=== PATIENT | male | born 1955 | race Caucasian/White ===

== ENCOUNTER → 2016-08-21 | Outpatient (CLI) | payer BC ==
[2016-08-21 16:30] LABS: CH 30.5; CHCM 33.3; HCT 52.9 % (39.0-53.0); HDW 2.71; HGB 17.9 gm/dL (13.0-17.5); MCH 31.1 pg (25.0-35.0); MCHC 33.8 g/dL (31.0-37.0); RBC 5.75 m/uL (4.30-5.90); RDW 13.2 % (11.5-15.5); WBC 8.3 k/uL (3.8-10.6)
[2016-08-21 16:40] LABS: Anion Gap 13 mmol/L; Blood Urea Nitrogen 18 mg/dL (9-20); Calcium 9.2 mg/dL (8.4-10.2); Carbon Dioxide 29 mmol/L (22-30); Chloride 102 mmol/L (98-107); Glucose 73 mg/dL (74-99); Non-African American GFR(MDRD) >60 (>60 ml/min/1.73 sqM); Potassium 3.8 mmol/L (3.5-5.1); Sodium 144 mmol/L (137-145)
== END | disposition home or self-care (01) ==
LOC: LABWHC1 16:05
PROVIDERS: ATTEND Internal Medicine Clinical Cardiac Electrophysiology
DX: I47.1 Supraventricular tachycardia (principal); I42.9 Cardiomyopathy, unspecified; I48.1 Persistent atrial fibrillation
CPT/HCPCS: 36415; 80048; 85027

== ENCOUNTER 2016-09-02 06:38 | Day surgery (SDC) | payer BC ==
[2016-09-02] MEDS: SODIUM CHLORIDE 0.9% 1,000 ML IV SCH (07:18)
[2016-09-02] MEDS ORDERED: ePHEDrine 50 MG/ML 1 ML AMP ONE (07:49)
[2016-09-02] MEDS ORDERED: NEOSTIGMINE 1 MG/ML 10 ML VIAL ONE (07:49)
[2016-09-02] MEDS ORDERED: VECURONIUM 10 MG VIAL IV ONE (07:49)
[2016-09-02] MEDS ORDERED: LIDOCAINE 1% INJ 10MG/ML (20 ML MDV) ONE (07:49)
[2016-09-02] MEDS ORDERED: HEPARIN SODIUM,PORCINE 10,000 UNIT/ML 1 ML VIAL ONE (07:49)
[2016-09-02] MEDS ORDERED: MIDAZOLAM 2 MG/2 ML VIAL ONE (07:49)
[2016-09-02] MEDS ORDERED: FUROSEMIDE 10 MG/ML 2 ML VIAL ONE (07:49)
[2016-09-02] MEDS ORDERED: SUCCINYLCHOLINE CHLORIDE 100 MG/5 ML SYR IV ONE (07:49)
[2016-09-02] MEDS ORDERED: GLYCOPYRROLATE 0.2 MG/ML 2 ML VIAL ONE (07:49)
[2016-09-02] MEDS ORDERED: PROPOFOL 10 MG/ML 20 ML VIAL IV ONE (07:49)
[2016-09-02] MEDS ORDERED: ISOPROTERENOL 250 MCG/1.25 ML SYR IV ONE (07:49)
[2016-09-02] MEDS ORDERED: PHENYLEPHRINE-0.9% NACL SYG 1 MG/10 ML SYRINGE ONE (07:49)
[2016-09-02] MEDS ORDERED: fentaNYL (PF) 50 MCG/ML 2 ML AMP ONE (07:49)
[2016-09-02] MEDS ORDERED: LIDOCAINE 2% INJ 20 MG/ML SQ ONE (08:42)
[2016-09-02] MEDS ORDERED: HEPARIN SODIUM,PORCINE/D5W PMX 25,000 UNIT in DEXTROSE/WATER 1 500ML.BAG IV ONE (09:22)
[2016-09-02] MEDS ORDERED: HEPARIN SODIUM (1,000 UNIT/ML) 1,000 UNIT in SODIUM CHLORIDE 0.9% 1,000 ML IRRIGATION ONE (09:45)
[2016-09-02] MEDS ORDERED: LACTATED RINGERS 1,000 ML IV ONE (12:30)
[2016-09-02] MEDS ORDERED: PROTAMINE SULFATE 10 MG/ML 5 ML VIAL IV ONE ×2 (13:47→13:50)
[2016-09-02] MEDS ORDERED: FUROSEMIDE 10 MG/ML 4 ML VIAL ONE (13:52)
[2016-09-02] MEDS ORDERED: FUROSEMIDE 10 MG/ML 4 ML VIAL IV ONE (13:55)
[2016-09-02] MEDS ORDERED: ACETAMINOPHEN IV (For NPO) 1,000 MG in EMPTY BAG 1 BAG IVPB ONE (15:12)
[2016-09-02] MEDS ORDERED: ACETAMINOPHEN TAB 325 MG TAB PO PRN (15:12)
[2016-09-02] MEDS ORDERED: HYDROcodone/APAP 5-325MG 1 EACH TAB PO PRN (15:12)
--- NOTE | 2016-09-02 15:17 | P.PCN ---
Preoperative Diagnosis: Patient admitted for post A. fib ablation atrial tachycardia atrial cycle length 400 ms, upright P waves in V1 Ablations performed PVI antral level right side anterior and roof PVI natasha left knee veins, anteriorly Focal ablation of a focal atrial tachycardia mid roof of the left atrium, successful termination with second RF lesion Ablation of right atrial isthmus for flutter
--- NOTE | 2016-09-02 16:40 | CE ---
DATE OF SERVICE: Mr. Yadav is a 61-year-old male patient comes to his atrial tachycardia fibrillation. He is brought in for A. tach/fibrillation. Patient was brought to the EP lab in a fasting state. Written informed consent was obtained prior to the procedure. The procedure was performed under general anesthesia. Right and left groins were prepped and draped as per protocol. 5 [place] arterial sheath was placed in the right femoral vein. Via this hemodynamic monitoring was performed as well as sampling. ACT was maintained above 300 and this was reversed at the end of the procedure. The venous sheaths were placed in the right and left femoral veins, and via these diagnostic, mapping and then ablation catheters were placed. The patient was in atrial tachycardia at the start of the study with a cycle length of 400 ms, upright QRSs in lead V1, upright in lead I and slightly upright in the inferior leads. Intracardiac echocardiography was performed and there were no intracardiac masses noted. Interatrial septum was identified. Three-D anatomic mapping of the left atrium and later the caval tricuspid isthmus was performed. Transseptal catheterization was performed. The left and right transseptal catheterization on intracardiac echo guidance was performed. He had a thick interatrial septum and it was difficult to cross. A transsept wire, was used but this did not help with crossing through the ( ). RF energy was applied to the Brockenbrough needle, 10 landry and we successfully crossed over without any acute complications. The sheath was then placed in the left atrium and a ( ) catheter was first placed in the left atrium. Coronary sinus catheter was placed while the other venous sheaths and later high right atrial catheter, His bundle catheter and RV catheters were placed. 3-D anatomic mapping of the left atrium was performed using a Pentaray catheter and a focal tachycardia was detected in the roof in the mid roof of the left atrium. This catheter was removed and mapping and ablation catheter was placed and ( ) RF lesion at the earliest site, resulted in termination of the tachycardia. The ( ) set was then consolidated with RF lesions around the early site, good contact, and good power was achieved. Voltage mapping of the left atrium was performed in sinus rhythm. The pulmonary veins were interrogated and the previous linear RF lines were interrogated. Mild left and right pulmonary veins were definitely isolated. The following was noted: 1. Along the roof and anterior aspect of the right-sided veins, isolated signals were noted at 2 to 3 sites. The vein was completely isolated. But these isolated signals, would come occasionally. Detailed scar mapping of the roof and the anterior antrum of the right-sided veins was performed and an RF ablation was performed from the roof down to below the natasha. At a very antral/atrial level. This resulted in complete quiescence of the pulmonary veins which are already isolated. This resulted in complete quiescence of the pulmonary veins of the right side. 2. RF ablations were delivered and the anterior natasha of the left-sided veins and this area was rendered ( ) silent. After completion of the pulmonary vein isolation, scar mapping was performed along the roof and the initial RF lesion set for focal tachycardia was then connected on the right-sided pulmonary veins and a complete integrity of the line was ensured. Anterior mitral line was drawn just medial to the left atrial appendage was also interrogated and this was already complete. Following that, the catheter was removed from the left atrium and heparin was discontinued. After anatomic mapping of the right atrial isthmus was performed, the patient already had a prior atrial flutter ablation previously. Scar mapping was performed and there were areas of electrical recovery were noted since he had a very long right atrial isthmus. RF energy was applied at these sites and a complete and right atrial isthmus line was completed. The isthmus conduction time was greater than 154 ms. It was greater than 155 ms and pacing from the coronary sinus. A complete scar map was made to confirm this once again at a very low voltage threshold of 0.02 mV. Please note that the left atrial scar voltage map was made at the lower voltage threshold of 0.01 mV and the right atrial isthmus at the lower voltage threshold of 0.02 mV. Following that, Isuprel was started and a full EP study was performed. Sinus node recovery times at 600 ms were 1415 ms. The corresponding corrected sinus node recovery times were within normal limits. AV node Wenckebach block was 370 ms from the coronary sinus, via Wenckebach block 340 ms, AV node Wenckebach block improved to 30 ms on Isuprel, on Isuprel a slow pathway was noted at 270 ms but no AV node re-entry was used at the baseline AH interval was 133 ms, baseline HV interval was 45 ms. High-dose Isuprel was continued and no other arrhythmias were induced. At the end of the procedure, all catheters were removed. Protamine was administered and sheaths were removed. The patient was transferred to telemetry. RESULT: Diagnostic EP study revealin. Focal atrial tachycardia in the mid roof of the left atrium which is clinical tachycardia and this was successfully ablated. 2. Isolated signals within the anterior aspect of the right pulmonary veins. These are dissociated signals complete isolation of the right-sided vein was performed anteriorly and along the roof. Isolated signal was also noted in the natasha of the left-sided veins and RF ablation along the ridge at the level of the natasha resulted in successful isolation of these veins. 3. Completion of ( ) tricuspid isthmus line was performed based upon the scar mapping. Patient tolerated the procedure well without any acute complications. PROCEDURES PERFORMED: 1. Hemodynamic monitoring and sampling via the right femoral arterial sheath. 2. Comprehensive diagnostic EP study with attempted arrhythmia induction. 3. Coronary sinus pacing and recording. 4. Left to right transseptal catheterization. 5. Three-D mapping of the left atrium. Three-D mapping of the right atrium. Two left atrial 3D maps were made and isolation of the pulmonary veins on the right and left side and focal atrial tachycardia ablation in the left atrium at the roof. 6. Linear ablation along tricuspid isthmus to complete the flutter-line. 7. Program stimulation following Isuprel. The patient tolerated the procedure well without any acute complications.
[2016-09-02 16:47] VITALS: BMI 35.4
--- NOTE | 2016-09-02 16:47 | DS ---
DATE OF ADMISSION: 09/02/2016 DATE OF DISCHARGE: Moise Yadav is a 61-year-old male patient underwent A. tach ablation for as well as PVI and CT ablation. He will be monitored overnight on telemetry. All of his medications will be continued and he will be discharged home tomorrow if he is stable and will follow up with Dr. Spence in 1 to 2 weeks. He will also follow with Dr. Byrd as before. His LV function on intracardiac echo shows normal function. He will continue Tikosyn.
--- NOTE | 2016-09-02 16:49 | CE ---
DATE OF SERVICE: ADDENDUM: LEFT AND RIGHT TRANSSEPTAL CATHETERIZATION: Please include in the original dictation not as an addendum: The RA pressure was 17 x 14 mmHg and LA pressure was 35 x 17 mmHg.
--- NOTE | 2016-09-02 16:51 | LTR ---
September 02, 2016 RE: Moise Yadav Dear Dr. Byrd: I had the pleasure of seeing Mr. Moise Yadav in electrophysiology follow up. ( ) Mr. Yadav had a recurrence of slow atrial tachycardia and he underwent successful focal atrial tachycardia ablation. The other RF lines were interrogated with voltage mapping and were consolidated. RF ablation at the earliest site and the roof of the left atrium resulted in termination of the tachycardia. However, his left and right atria are very dilated. In addition, his blood pressure was elevated when he came in, despite the fact that he continues to take his medications. He has not been very compliant with salt restrictions either. Both his left and right atrial pressures are elevated and I will urge him to reduce salt intake and he will require full maximization of antihypertensive therapy if needed. His pulmonary veins are now completely isolated. His roof line is complete. The anterior mitral line was also interrogation and is completed. The focal atrial tachycardia ablation was successful with a second RF lesion. He will continue anticoagulation. He will also continue Tikosyn. Thank you for entrusting me with the care of your patient. Warm regards, Sincerely, FELISHA LAKHANI MD
[2016-09-02] MEDS ORDERED: METOPROLOL SUCCINATE (ER) 50 MG TAB.ER.24H PO SCH (17:30)
[2016-09-02] MEDS ORDERED: RIVAROXABAN 10 MG TAB PO SCH (21:00)
[2016-09-02] MEDS: DOFETILIDE 125 MCG CAP PO SCH (21:52)
[2016-09-02] MEDS: LISINOPRIL 20 MG TAB PO SCH (21:52)
[2016-09-03] MEDS: SODIUM CHLORIDE 0.9% 1,000 ML IV SCH (06:52)
[2016-09-03 08:25] VITALS: RESP 16
[2016-09-03] MEDS: DOFETILIDE 125 MCG CAP PO SCH (08:25)
[2016-09-03] MEDS: LISINOPRIL 20 MG TAB PO SCH (08:26)
[2016-09-03 08:35] VITALS: PULSE 64
[2016-09-03] MEDS ORDERED: SPIRONOLACTONE 25 MG TAB PO SCH (09:00)
[2016-09-03 11:58] VITALS: BP 130/87; TEMP 97
[2016-09-03] MEDS ORDERED: MAGNESIUM OXIDE 250 MG TAB PO SCH (12:00)
== END 2016-09-03 12:51 | disposition home or self-care (01) ==
LOC: CATHEP 06:38 → 6SEL 13:55 → CATHEP 09-03 12:51
PROVIDERS: ATTEND Internal Medicine Clinical Cardiac Electrophysiology
DX: I47.1 Supraventricular tachycardia (principal); I48.1 Persistent atrial fibrillation; I42.9 Cardiomyopathy, unspecified; I10 Essential (primary) hypertension; G47.33 Obstructive sleep apnea (adult) (pediatric); Z79.01 Long term (current) use of anticoagulants; Z79.899 Other long term (current) drug therapy; Z88.0 Allergy status to penicillin
CPT/HCPCS: 85347; 93623; 93662; 93613; 93656; 93657; C1894 ×3; C1769 ×5; C1730; C1731; C1893; C1759; C1732; J2001 ×2; J2250; J2720; J1644 ×3; J1940 ×2; J2710; J3010; J2370; J0330; J2704

== ENCOUNTER → 2016-12-11 | Outpatient (CLI) | payer BC ==
[2016-12-11 10:30] LABS: ALT 32 U/L (21-72); AST 31 U/L (17-59); Alkaline Phosphatase 65 U/L (38-126); Anion Gap 8 mmol/L; Blood Urea Nitrogen 16 mg/dL (9-20); Calcium 9.2 mg/dL (8.4-10.2); Carbon Dioxide 29 mmol/L (22-30); Chloride 105 mmol/L (98-107); Glucose 85 mg/dL (74-99); Magnesium 1.9 mg/dL (1.6-2.3); Non-African American GFR(MDRD) >60 (>60 ml/min/1.73 sqM); Potassium 4.2 mmol/L (3.5-5.1); Sodium 142 mmol/L (137-145); Total Protein 7.4 g/dL (6.3-8.2)
== END | disposition home or self-care (01) ==
LOC: LABWHC1 09:48
PROVIDERS: ATTEND Internal Medicine Interventional Cardiology
DX: I48.0 Paroxysmal atrial fibrillation (principal)
CPT/HCPCS: 36415; 80053; 83735

== ENCOUNTER → 2016-12-11 | Outpatient (CLI) | payer BC ==
--- NOTE | 2016-12-11 22:56 | PN ---
DATE OF SERVICE: 12/11/2016 A 61-year-old gentleman who has been followed in the sleep center for treatment of obstructive sleep apnea-hypopnea syndrome. Patient continued to use his BiPAP equipment practically every night. Reading from last 30 days of his machine showed usage for more than 4 hours for 29 out of 30 days, which is 97%. Pressure is 17/13. Sometimes patient takes his mask off during the night. He does not feel comfortable with that. Apnea-hypopnea index reading is 9.7. Leak is quite significant. It is ( ). According to patient, he is trying to put his mask on and tighten it and then he does not feel comfortable because is too tight. Castella Sleepiness Scale today is 3. MEDICATIONS: 1. Xarelto. 2. Lisinopril. 3. Spironolactone. 4. Metoprolol. 5. Lasix. 6. Fluticasone. PHYSICAL EXAMINATION: GENERAL: A pleasant patient without any distress. VITAL SIGNS: BP 107/77, HR 64, RR 16. Height 73-1/2 inches. Weight 283. BMI 36.9. Patient increased his weight since the time when he had titration about 10 pounds up. Temperature 98.1. Oxygen saturation at room air 98%. HEENT: PERRLA, EOMI, Evaluation of the oropharynx showed tongue protrudes midline, extremely low position of soft palate. NECK: Supple. No JVD, Thyroid is not palpable. LUNGS: Clear to percussion and to auscultation. Good air exchange. No wheezing or rhonchi. HEART: S1, S2 regular. No murmurs, gallops, or rubs. ABDOMEN: Obese, soft and nontender. Bowel sounds are present. No organomegaly appreciated. EXTREMITIES: Practically no edema. PEER SPECIALIST: Awake, alert, and oriented x3. Cranial nerves 2 to 7 intact. There is no fasciculation or atrophy noted. No focal deficits observed. IMPRESSION: 1. Obstructive sleep apnea/hypopnea syndrome. Patient demonstrated good compliance with treatment, benefiting from treatment. Apnea-hypopnea index slightly increased. Significant leak from the mask. 2. Obesity, body mass index 36.9. Patient increased his weight around 10 pounds since previous titration. 3. History of atrial fibrillation. 4. Hypertension. 5. History of cardiomyopathy. 6. History of swelling of legs in the past, practically no swelling at the present time. PLAN: 1. Patient will continue to use his BiPAP equipment every night for the whole night. 2. Losing weight. 3. Sleep hygiene with regular time in bed for at least 8 hours. 4. Will try to work regarding to change his mask to a more comfortable unit. 5. No driving if feeling any sleepiness. 6. Prescription for all necessary BiPAP supplies, including mask, tube, filters. Thank you very much for allowing me to participate in the management of your patient. Sincerely, Tim Valentin MD, PhD, FAASM Diplomat of [place] [employer] Sleep [employer], Sleep Medicine Board by [place] [employer] [place] [employer] Manager of [facility] [place]
== END | disposition home or self-care (01) ==
LOC: SLEEP 16:31
PROVIDERS: ATTEND Internal Medicine
DX: G47.33 Obstructive sleep apnea (adult) (pediatric) (principal); E66.9 Obesity, unspecified; Z68.36 Body mass index [BMI] 36.0-36.9, adult; I48.91 Unspecified atrial fibrillation; I10 Essential (primary) hypertension; I42.9 Cardiomyopathy, unspecified; Z79.01 Long term (current) use of anticoagulants; Z79.899 Other long term (current) drug therapy

== ENCOUNTER → 2017-06-26 | Outpatient (CLI) | payer OTHER ==
[2017-06-26 11:10] LABS: ALT 38 U/L (21-72); AST 24 U/L (17-59); Alkaline Phosphatase 58 U/L (38-126); Anion Gap 7 mmol/L; Blood Urea Nitrogen 20 mg/dL (9-20); Calcium 9.1 mg/dL (8.4-10.2); Carbon Dioxide 27 mmol/L (22-30); Chloride 106 mmol/L (98-107); Glucose 73 mg/dL (74-99); Magnesium 1.9 mg/dL (1.6-2.3); Non-African American GFR(MDRD) >60 (>60 ml/min/1.73 sqM); Potassium 4.5 mmol/L (3.5-5.1); Sodium 140 mmol/L (137-145); Total Bilirubin 0.8 mg/dL (0.2-1.3); Total Protein 6.7 g/dL (6.3-8.2)
== END | disposition home or self-care (01) ==
LOC: LABWHC1 10:13
PROVIDERS: ATTEND Internal Medicine Interventional Cardiology
DX: I48.0 Paroxysmal atrial fibrillation (principal)
CPT/HCPCS: 36415; 80053; 83735

== ENCOUNTER → 2018-03-04 | Outpatient (CLI) | payer OTHER ==
[2018-03-04 15:13] LABS: Calcium 9.1 mg/dL (8.4-10.2); Potassium 4.5 mmol/L (3.5-5.1); Total Bilirubin 0.6 mg/dL (0.2-1.3); Total Protein 6.5 g/dL (6.3-8.2)
== END | disposition home or self-care (01) ==
LOC: LABWHC1 14:20
PROVIDERS: ATTEND Internal Medicine Interventional Cardiology
DX: I48.0 Paroxysmal atrial fibrillation (principal)
CPT/HCPCS: 36415; 80053; 83735

== ENCOUNTER → 2019-03-17 | Outpatient (CLI) | payer BC ==
[2019-03-17 16:09] LABS: African American GFR (CKD) 66.4 (60.0-200.0); Albumin 4.2 g/dL (3.80-4.90); Anion Gap 10.4 mmol/L (4.00-12.00); Carbon Dioxide 26.6 mmol/L (21.6-31.8); Globulin 2.1 g/dL (1.6-3.3); Magnesium 1.8 mg/dL (1.5-2.4); Non-African American GFR(CKD) 57.3 (60.0-200.0); Potassium 4.1 mmol/L (3.5-5.5); Total Bilirubin 0.9 mg/dL (0.3-1.2); Total Protein 6.3 g/dL (6.2-8.2)
== END | disposition home or self-care (01) ==
LOC: LABWHC1 10:16
PROVIDERS: ATTEND Internal Medicine Interventional Cardiology
DX: I48.1 Persistent atrial fibrillation (principal)
CPT/HCPCS: 36415; 80053; 83735

== ENCOUNTER → 2019-05-31 | Outpatient (CLI) | payer BC | END | disposition home or self-care (01) | LOC: LABPAT 16:05 | PROVIDERS: ATTEND Orthopaedic Surgery | DX: Z01.812 Encounter for preprocedural laboratory examination (principal); M16.11 Unilateral primary osteoarthritis, right hip | CPT/HCPCS: 87070 ==

== ENCOUNTER 2019-06-06 06:37 | Inpatient (IN) | payer BC, MEDICARE ==
[2019-05-27 11:49] VITALS: BMI 34.9
--- NOTE | 2019-06-05 17:42 | HP ---
HISTORY AND PHYSICAL REASON FOR ADMISSION: Surgery scheduled for 06/06/2019 HISTORY OF PRESENT ILLNESS: Moise Yadav is a 63-year-old patient seen with symptomatic right hip osteoarthritis. After having treatment options discussed with him, he elected to proceed with direct anterior right total hip arthroplasty. Consent regarding the procedure was obtained. Medical clearance was provided Dr. Aldo Byrd. Cardiac clearance was provided by Dr. Spence. PAST MEDICAL HISTORY: Atrial fibrillation, hypertension, hyperlipidemia. PAST SURGICAL HISTORY: Right knee arthroscopy, cardiac ablation. MEDICATIONS: Daily medications include: Lasix, Lipitor, lisinopril, metoprolol, Xarelto. ALLERGIES: PENICILLIN. SOCIAL HISTORY: He denies current tobacco use. PHYSICAL EXAMINATION: Evaluation of the right hip, he has very limited range of motion with significant pain. Positive hip impingement sign. Straight leg raise is negative. Distal neurovascular exam is intact. RADIOGRAPHS: Radiographs of the right hip revealed moderate to severe osteoarthritic changes. IMPRESSION: 1. Right hip osteoarthritis. 2. Atrial fibrillation. 3. Hypertension. 4. Hyperlipidemia. PLAN: Direct anterior right total hip arthroplasty. Surgery 06/06/2019. MMODL / IJN: [id number] /
[~2019-06-06 06:37] MED LIST: ACETAMINOPHEN TAB 500 MG TAB PO ONE; HYDROmorphone 0.5 MG/0.5 ML SYRINGE IVP PRN; LIDOCAINE 1% 20 ML VIAL (10MG/ML) FOR IV START INTRADERMA PRN; MELOXICAM 7.5 MG TAB PO ONE; ONDANSETRON 4 MG/2 ML VIAL IVP ONE; ROPIVACAINE 246.25 MG, EPINEPHrine 0.5 MG, KETOROLAC 30 MG, cloNIDine HCL/PF 80 MCG, WA... MISCELLANE ONE; TRANEXAMIC ACID 1,000 MG in SODIUM CHLORIDE 0.9% 100 ML IVPB ONE; ceFAZolin 3 GM in SODIUM CHLORIDE 0.9% 100 ML IVPB ONE
[2019-06-06] MEDS: LACTATED RINGERS 1,000 ML IV SCH ×3 (07:15→19:44)
[2019-06-06] MEDS ORDERED: DEXAMETHASONE SOD PHOS (MDV) 100 MG/10 ML VIAL IV ONE (07:15)
[2019-06-06] MEDS ORDERED: fentaNYL (PF) 50 MCG/ML 2 ML AMP ONE (07:25)
[2019-06-06] MEDS ORDERED: PROPOFOL 10 MG/ML 20 ML VIAL IV ONE (07:25)
[2019-06-06] MEDS ORDERED: MIDAZOLAM 2 MG/2 ML VIAL ONE (07:25)
[2019-06-06] MEDS ORDERED: diphenhydrAMINE 50 MG/ML 1 ML VIAL ONE (07:25)
[2019-06-06] MEDS ORDERED: SODIUM CHLORIDE 0.9% 100 ML BAG ONE (07:25)
[2019-06-06] MEDS ORDERED: TRANEXAMIC ACID 1,000 MG/10 ML VIAL ONE (07:25)
[2019-06-06] MEDS ORDERED: ceFAZolin 3,000 MG in SODIUM CHLORIDE 0.9% IRRIGATIO 3,000 ML IRRIGATION ONE (08:05)
[2019-06-06] MEDS ORDERED: LACTATED RINGERS 1,000 ML IV ONE (09:05)
--- NOTE | 2019-06-06 09:34 | P.OP ---
Date of Procedure: 06/06/19 Preoperative Diagnosis: Right hip osteoarthritis Postoperative Diagnosis: Right hip osteoarthritis Procedure(s) Performed: Direct anterior right total hip arthroplasty Implants: 1. Depuy [place] size 16 no collared press-fit femoral stem 2. Depuy pinnacle 60 mm press-fit multi hole acetabular shell 3. Depuy pinnacle polyethylene acetabular liner +4 10 36 mm ID 60 mm OD 4. Biolox delta ceramic femoral head +1.5 36 mm Anesthesia: local, spinal Surgeon: Jimenez Huntley Power Saw Operator #1: Gurdeep Castaneda Estimated Blood Loss (ml): 150 Pathology: other (Femoral head) Condition: stable Disposition: PACU Indications for Procedure: 63-year-old patient seen with symptomatic right hip osteoarthritis. After having treatment options discussed, he elected to proceed with total hip arthroplasty. Operative Findings: See description of procedure Description of Procedure: The patient was taken to the operative suite. Patient underwent a spinal anesthetic by the department of anesthesia. Patient was then transferred to the [place] table. Patient was given preoperative IV antibiotics and TXA. Both lower extremities were placed in standard leg spars. The hip was then prepped and draped in the normal sterile orthopedic fashion. A standard anterior incision was made beginning 3 cm lateral and 1 cm distal to the ASIS extending 10 cm. Dissection was then carried down through the subcutaneous soft tissues down to the fascia overlying the tensor fascia kevin. An incision was now made through the fascia. Careful dissection was taken down exposing the tensor fascia kevin muscle. A Cobra retractor was now placed along the medial femoral neck and a second one along the lateral femoral neck. The venous circumflex vessels were now identified, cauterized and clipped. We identified the anterior hip capsule. An incision was made through the hip capsule along the lateral border. I performed a partial anterior capsulectomy. Retractors were now placed around the femoral neck itself. A femoral neck cut was now made with a sagittal saw. It was completed with an osteotome at the lateral neck area. The femoral head was now removed without difficulty. The extremity was now rotated to 45 of external rotation. It was locked in position. Residual labrum was now debrided out. Serial reaming was performed of the acetabulum while Esteban SAMUELS assisted holding an anterior retractor for exposure. Once we reached the appropriate size and a trial was position and fit nicely. The appropriate size was now chosen opened and made available. It was introduced into the acetabulum without difficulty. The C-arm/fluoroscopy was now brought into the operative field. We made sure we had a true AP pelvic view. We now under direct C- arm/fluoroscopy introduced into the acetabular component with appropriate version and inclination. I held the cup in appropriate position well Esteban SAMUELS used a mallet to seat the acetabular component. I noted the component now to be well seated and stable. The C-arm was pulled back. An appropriate liner was introduced and clicked into position. It was felt to be stable. I evaluated the actual implant liner position and felt that the cup had a little more anteversion that I wanted. The acetabular liner was now removed. I now placed in position a 10 +4 liner to give us a more anterior coverage. Was clicked into position felt to be stable. At this point retractors were removed. The extremity was now placed into 120 external rotation with no traction. The leg was now dropped to the ground and adducted. Appropriate retractors were now positioned along the proximal femur. We also placed our femoral look into position. Additional capsular releasing was performed to gain access to the proximal femur. We now used a box osteotome. A canal finder was now utilized. Serial broaching was now performed with the assistance of Esteban SAMUELS tapping the broaches down with a mallet while held the broach in appropriate rotation and position. This was done until we reached the appropriate size with good overall rotational stability. Appropriate calcar planing was performed. A trial head/neck was placed into position. The hip was now reduced. The C- arm/fluoroscopy was brought back into the operative field. A spot film was obtained of the nonoperative hip. A spot film was obtained of the trial components. Overlays were performed, we noted good overall alignment and positioning for determining leg length. The C-arm/fluoroscopy was pulled back. Retractors were repositioned and the hip was dislocated. The leg was again taken down to the ground and adducted. Appropriate retractors were repositioned as well as the femoral hook. All trial components were removed. The femoral implant was opened along with the femoral head. The femoral implant was introduced on the appropriate handle into our pre-broached area. I held the component position well Esteban SAMUELS used a mallet to seat the femoral component. The femoral component was now noted to be well seated and stable.. The femoral head was introduced with good positioning and fixation noted. Retractors were now removed. The hip was now reduced. There appeared be good positioning of the hip confirmed on intraoperative fluoroscopy. Spot films were obtained to document this. A second gram of TXA was given. The deep and superficial soft tissues were infiltrated with local analgesic. Bipolar cautery had been utilized intermittently through the procedure for hemostasis. The wound was irrigated copiously with pulse lavage mechanical irrigation. The fascia was repaired with Vicryl suture. The subcutaneous soft tissues were repaired in layers with Vicryl suture. The skin was approximated with pernio/Dermabond. Sterile dressings were applied. Patient was then awakened, transferred to a bed and taken to recovery in stable condition. Esteban SAMUELS assisted with the complex procedure.
[2019-06-06] MEDS ORDERED: NALOXONE 0.4 MG/ML 1 ML VIAL IV PRN (09:35)
[2019-06-06] MEDS ORDERED: HYDROmorphone 1 MG/ML 1 ML SYRINGE IVP PRN (09:35)
[2019-06-06] MEDS ORDERED: HYDROcodone/APAP 5-325MG 1 EACH TAB PO PRN (09:35)
[2019-06-06] MEDS ORDERED: ONDANSETRON 4 MG/2 ML VIAL IVP PRN (09:35)
[2019-06-06] MEDS ORDERED: HYDROmorphone 0.5 MG/0.5 ML SYRINGE IVP PRN ×2 (09:35)
--- NOTE | 2019-06-06 12:04 | XR ---
Right hip Limited HISTORY: Status post right hip arthroplasty Single frontal view of the right hip Patient is status post right hip arthroplasty. There is anatomic alignment. Lucency is present in the soft tissues, there are overlying robbie compatible with postop state. IMPRESSION: Orthopedic follow-up.
[2019-06-06] MEDS: HYDROcodone/APAP 5-325MG 1 EACH TAB PO PRN ×2 (16:10→21:19)
[2019-06-06] MEDS: ceFAZolin 3 GM in SODIUM CHLORIDE 0.9% 100 ML IVPB SCH (16:13)
--- NOTE | 2019-06-06 16:27 | XR ---
Limited right hip HISTORY: Anterior hip replacement Single intraoperative C-arm image documents the procedure.
--- NOTE | 2019-06-06 16:28 | FL ---
Fluoroscopy HISTORY: Anterior hip replacement 33 seconds fluoroscopy time supplied to the referring clinician. 1 intraoperative C-arm images docum ent the procedure. See dictated report from orthopedic surgery.
[2019-06-06] MEDS ORDERED: FUROSEMIDE 20 MG TAB PO PRN (20:21)
[2019-06-06] MEDS ORDERED: METOPROLOL SUCCINATE (ER) 50 MG TAB.ER.24H PO SCH (20:45)
[2019-06-06] MEDS ORDERED: LISINOPRIL 20 MG TAB PO SCH (21:00)
[2019-06-06] MEDS ORDERED: SENNOSIDES-DOCUSATE SODIUM 1 EACH TAB PO SCH (21:00)
[2019-06-06] MEDS ORDERED: ATORVASTATIN 10 MG TAB PO SCH (21:00)
[2019-06-06] MEDS: DOFETILIDE 125 MCG CAP PO SCH (21:31)
[2019-06-07] MEDS: ceFAZolin 3 GM in SODIUM CHLORIDE 0.9% 100 ML IVPB SCH (00:31)
[2019-06-07] MEDS: LACTATED RINGERS 1,000 ML IV SCH ×2 (03:45→05:48)
[2019-06-07 05:39] VITALS: TEMP 97.9
[2019-06-07] MEDS: HYDROcodone/APAP 5-325MG 1 EACH TAB PO PRN (07:27)
[2019-06-07] MEDS: DOFETILIDE 125 MCG CAP PO SCH (07:27)
[2019-06-07 07:55] VITALS: BP 100/62; PULSE 61; RESP 12
[2019-06-07] MEDS ORDERED: ENOXAPARIN 40 MG/0.4 ML SYRINGE SQ SCH (09:00)
[2019-06-07] MEDS ORDERED: FAMOTIDINE 20 MG TAB PO SCH (09:00)
[2019-06-07] MEDS ORDERED: RIVAROXABAN 20 MG TAB PO SCH ×2 (09:00→17:30)
[2019-06-07] MEDS ORDERED: MELOXICAM 7.5 MG TAB PO SCH (09:00)
[2019-06-07 09:56] LABS: Basophils # (A) 0.1 k/uL (0-0.2); Basophils % (A) 0 %; Eosinophils % (A) 0 %; HCT 38.9 % (39.0-53.0); HGB 12.8 gm/dL (13.0-17.5); Lymphocytes # (A) 1.2 k/uL (1.0-4.8); Lymphocytes % (A) 8 %; MCH 30.5 pg (25.0-35.0); MCV 92.5 fL (80.0-100.0); Mean Platelet Volume 6.2; Monocytes # (A) 0.8 k/uL (0-1.0); Monocytes % (A) 5 %; Neutrophils # (A) 13.2 k/uL (1.3-7.7); Neutrophils % (A) 86 %; Platelet Count 207 k/uL (150-450); RDW 13.1 % (11.5-15.5); WBC 15.3 k/uL (3.8-10.6)
--- NOTE | 2019-06-07 11:13 | P.PN ---
Subjective Progress Note Date: 06/07/19 Principal diagnosis: Status post direct anterior right total hip arthroplasty Patient is evaluated at bedside, he is resting comfortably. He is anxious to go home. He has no chest pain or shortness of breath. Objective - Vital Signs Vital signs: Vital Signs Temp 97.9 F 06/07/19 07:00 Pulse 61 06/07/19 07:00 Resp 12 06/07/19 07:00 BP 100/62 06/07/19 07:00 Pulse Ox 96 06/07/19 07:00 Intake & Output 06/06/19 06/07/19 06/07/19 18:59 06:59 18:59 Intake Total 1301 800 Output Total 150 Balance 1151 800 Intake: IV 1301 Intake, IV Titration 800 Amount Lactated Ringers 1,000 ml 800 @ 100 mls/hr IV .Q10H TASHIA Rx#:[id number] Output: Estimated Blood Loss 150 Other: Voiding Method Toilet # Voids 1 - Exam Right lower extremity: Incision is clean, dry, and intact. The robbie is in good condition. There is minimal soft tissue swelling and ecchymosis surrounding the medial and lateral aspects of the incision. Calf is soft, no tenderness with palpation. Plantar flexion, dorsiflexion, EHL, FHL are intact. Sensory exam to light touch throughout the extremity is intact, dorsal pedis pulses 2+. - Labs CBC & Chem 7: 06/07/19 09:09 Labs: Abnormal Lab Results - Last 24 Hours (Table) 06/07/19 Range/Units 09:09 WBC 15.3 H (3.8-10.6) k/uL RBC 4.20 L (4.30-5.90) m/uL Hgb 12.8 L (13.0-17.5) gm/dL Hct 38.9 L (39.0-53.0) % Neutrophils # 13.2 H (1.3-7.7) k/uL Assessment and Plan Plan: Assessment: Postop day #1 status post direct anterior right total hip arthroplasty Plan: Pain control, discharged on oral medication GI and DVT prophylaxis, resume his already prescribed anticoagulant. Wound care instructions discussed Home physical therapy and nursing Medical recommendations Discharged home today Time with Patient: Less than 30
--- NOTE | 2019-06-07 11:16 | P.DS ---
Providers Date of admission: 06/06/19 06:37 Expected date of discharge: 06/07/19 Attending physician: Jimenez Huntley Primary care physician: Aldo Byrd Hospital Course: Date of admission: 06/06/2019 Date of discharge: 06/07/2019 Admission diagnosis: Status post direct anterior right total hip arthroplasty Discharge diagnosis: Same Attending physician: Dr. Huntley Surgical procedures: Direct anterior right total hip arthroplasty Brief history: Patient is a 63-year-old male with a history of progressive primary right hip osteoarthritis. At this point patient has failed conservative treatment measures and has opted to proceed with a elective right total hip arthroplasty. Hospital course: Details of patient's surgery can be found in operative report. Patient tolerated the procedure well and was subsequently transported to orthopedic floor. Patient's orthopeidc and medical care was provided daily. Patient had daily laboratory tests performed for evaluation of overall blood counts. Patient had daily physical therapy to include strengthening range of motion as well as education with walker ambulation. Patient was treated with Xarelto 20mg for their postoperative DVT prophylaxis during their inpatient stay. Patient was noted to have a relatively uneventful postoperative course. Patient reported satisfactory pain control with oral pain medications by postoperative day 0.. Patient showed satisfactory progress with physical therapy. Patient moved steadily through the program and had no difficulty meeting the goals by postoperative day 1. Given patient's otherwise satisfactory course and having met physical therapy goals, plan is to discharge patient home on postoperative day 1. Discharge condition/disposition: Patient will be discharged home in stable condition. Discharge medications: Instructions are given on resumption of patient's normal daily medications per primary care recommendation, in addition patient will be prescribed [place] 5 mg/325 mg, Colace 100illigrams. Discharge instructions: 1. Wound care and infection precautions, keep incision dry and covered while showering, no lotions, creams, moisturizers. No soaking, tubs, pools, hottubs. Do not scrub over the incision. 2. Weight-bear as tolerated with walker / cane until follow-up. 3. Ice and elevate when necessary. Do not exceed 20 minutes per hour with ice pack. 4. Utilize compression sleeve until seen at first follow up appointment. 5. Visiting nursing care. 6. Home physical therapy. 7. Pain meds and anticoagulants per prescription. 8. Pain medication has potential to cause constipation. Increase oral fluid and fiber intake. Contact primary care provider if you have not had a bowel movement within 48 hours after discharge 9. No anti-inflammatory medication until discussed at first post operative visit, this including Motrin, Aleve, Mobic, Diclofenac. 10. Follow up in office at 2 weeks postop with Esteban Castaneda PA-C 11. Follow up with your primary care doctor 7-10 days after discharge. 12. Contact [facility] with any questions, . Procedures: Direct anterior right total hip arthroplasty Patient Condition at Discharge: Good Plan - Discharge Summary Discharge Rx Participant: No New Discharge Prescriptions: New Docusate [Colace] 100 mg PO DAILY #30 capsule Hydrocodone/Acetaminophen [[place] 5-325] 1 each PO Q6HR PRN #28 tab PRN Reason: Pain No Action Rivaroxaban [Xarelto] 20 mg PO HS Furosemide 20 mg PO DAILY PRN PRN Reason: Edema Dofetilide [Tikosyn] 125 mcg PO Q12HR #90 cap Lisinopril [Prinivil] 20 mg PO HS Metoprolol Succinate [Toprol XL] 50 mg PO W/SUPPER Ascorbic Acid [Vitamin C] 1,000 mg PO BID Atorvastatin [Lipitor] 10 mg PO DAILY Discharge Medication List Furosemide 20 mg PO DAILY PRN 02/28/15 [History] Rivaroxaban [Xarelto] 20 mg PO HS 02/28/15 [History] Dofetilide [Tikosyn] 125 mcg PO Q12HR #90 cap 05/11/15 [Rx] Lisinopril [Prinivil] 20 mg PO HS 05/11/15 [History] Metoprolol Succinate [Toprol XL] 50 mg PO W/SUPPER 02/09/16 [History] Ascorbic Acid [Vitamin C] 1,000 mg PO BID 08/29/16 [History] Atorvastatin [Lipitor] 10 mg PO DAILY 06/06/19 [History] Docusate [Colace] 100 mg PO DAILY #30 capsule 06/07/19 [Rx] Hydrocodone/Acetaminophen [[place] 5-325] 1 each PO Q6HR PRN #28 tab 06/07/19 [Rx] Follow up Appointment(s)/Referral(s): Aldo Byrd DO [Primary Care Provider] - 1 Week Jimenez Huntley DO [Doctor of Osteopathic Medicine] - 06/22/19 2:30 pm [facility] - As Needed Activity/Diet/Wound Care/Special Instructions: Orthopedic Discharge Instructions: 1. Wound care and infection precautions, keep incision dry and covered while showering, no lotions, creams, moisturizers. No soaking, pools, hot tubs. Do not scrub over incision. 2. Weight-bear as tolerated with walker / cane until follow-up. 3. Ice and elevate when necessary. Do not exceed 20 minutes per hour with ice pack. 4. Utilize compression sleeve until seen at first follow up appointment. 5. Pain meds and anticoagulants per prescription. 6. Pain medication has potential to cause constipation. Increase oral fluid and fiber intake. Contact primary care provider if you have not had a bowel movement within 48 hours after discharge. 7. No anti-inflammatory medication until discussed at first post operative visit, this including Motrin, Aleve, Mobic, Diclofenac. 8. Follow up in office at 2 weeks postop with Esteban Castaneda PA-C 9. Follow up with your primary care doctor 7-10 days after discharge. 10. Contact [facility] with any questions, . Discharge Disposition: HOME WITH HOME HEALTH SERVICES
--- NOTE | 2019-06-07 15:09 | P.CONS ---
History of Present Illness - Reason for Consult Consult date: 06/07/19 Requesting physician: Jimenez Huntley - Chief Complaint Right hip osteoarthritis - History of Present Illness This is 63-year-old gentleman with history of atrial fibrillation, diastolic CHF, sleep apnea, cardiomyopathy, symptomatic right hip osteoarthritis, failed outpatient treatment, status post total hip arthroplasty-direct anterior. Tolerated procedure well. Up with physical therapy, ambulating in hallway, tolerating exertion well. Denies pain, reports muscular tenderness. Dressing recently changed, clean dry and intact. Passing flatus, denies chest pain, palpitations or shortness of breath. Denies lightheadedness, dizziness or focal deficits. Afebrile, WBC 15.3-reactive, hemoglobin 12.8. Review of Systems ROS Statement: Those systems with pertinent positive or pertinent negative responses have been documented in the HPI. ROS Other: All systems not noted in ROS Statement are negative. Past Medical History Past Medical History: Atrial Fibrillation, Heart Failure, Hypertension, Sleep Apnea/CPAP/BIPAP Additional Past Medical History / Comment(s): cardiomyopathy, EF 55%, pulmonary HTN, lower leg edema (improved with lasix), KASSIE with bipap, previous ablations with most recent 08/2016, History of Any Multi-Drug Resistant Organisms: None Reported Past Surgical History: Heart Catheterization, Orthopedic Surgery, Tonsillectomy Additional Past Surgical History / Comment(s): EP STUDY,CARDIAC ABLATION. ccath with normal coronaries, 03/09/15 ELIZABETH with cardioversion-successful for about 1-2 days per pt. SEVERAL BILATERAL ANKLE SURGERIES, CARDIAC ABLASION Past Anesthesia/Blood Transfusion Reactions: No Reported Reaction Past Psychological History: No Psychological Hx Reported Additional Psychological History / Comment(s): Pt resides with his spouse. He is independent. He uses no assistive device. He drives. JUST RECENTLY RETIRED FROM [employer]. NO SERVICE IN HIS LIFETIME. Smoking Status: Never smoker Past Alcohol Use History: Occasional Additional Past Alcohol Use History / Comment(s): Pt states he is now not drinking any alcohol. Past Drug Use History: None Reported - Past Family History Mother Family Medical History: Cancer Additional Family Medical History / Comment(s): She had polio and loss the use of one arm, she had lymphoma and had a leg amputation. Father Family Medical History: Myocardial Infarction (MS) Additional Family Medical History / Comment(s): Father of MS at age 79yrs Medications and Allergies Home Medications Medication Instructions Recorded Confirmed Type Furosemide 20 mg PO DAILY PRN 02/28/15 06/06/19 History Rivaroxaban [Xarelto] 20 mg PO HS 02/28/15 06/06/19 History Dofetilide [Tikosyn] 125 mcg PO Q12HR #90 cap 05/11/15 06/06/19 Rx Lisinopril [Prinivil] 20 mg PO HS 05/11/15 06/06/19 History Metoprolol Succinate [Toprol XL] 50 mg PO W/SUPPER 02/09/16 06/06/19 History Ascorbic Acid [Vitamin C] 1,000 mg PO BID 08/29/16 06/06/19 History Atorvastatin [Lipitor] 10 mg PO DAILY 06/06/19 06/06/19 History Docusate [Colace] 100 mg PO DAILY #30 capsule 06/07/19 Rx Hydrocodone/Acetaminophen [[place] 1 each PO Q6HR PRN #28 tab 06/07/19 Rx 5-325] Allergies Allergy/AdvReac Type Severity Reaction Status Date / Time Penicillins Allergy Unknown Verified 06/06/19 06:49 Childhood adhesive AdvReac Rash/Hives Verified 06/06/19 06:49 Physical Exam Vitals: Vital Signs Temp Pulse Resp BP Pulse Ox 06/07/19 07:00 97.9 F 61 12 100/62 96 06/07/19 05:38 97.9 F 63 94/57 95 06/06/19 19:55 97.4 F L 61 16 126/82 97 Intake and Output 06/06/19 06/07/19 06/07/19 22:59 06:59 14:59 Intake Total 800 Balance 800 Intake: Intake, IV Titration 800 Amount Lactated Ringers 1,000 ml 800 @ 100 mls/hr IV .Q10H [facility] Rx#:[id number] Other: Voiding Method Toilet # Voids 3 1 PHYSICAL EXAM: VITAL SIGNS: As above GENERAL: Sitting up in bed, no acute distress HEENT: Conjunctivae normal. eyes normal. Oral mucosa moist NECK: No JVD. No thyroid enlargement. No LNs CARDIOVASCULAR: S1, S2 regular.. No murmur RESPIRATION: Breath sounds diminished in the bases. No rhonchi or crackles. No bronchial breathing. ABDOMEN: Soft, nontender . No guarding. no masses palpable. No ascites, No hepatosplenomegaly.Bowel sounds heard. LEGS: Minimal right thigh/hip edema and ecchymosis. Dressing recently changed, clean dry and intact. Extremity warm, Positive dorsal pedis pulse. PSYCHIATRY: Alert and oriented X3, mood and affect normal. NERVOUS SYSTEM: Cranial N 2-12 grossly normal. Moves all 4 limbs. Diffuse weakness No focal deficits. Strength and sensation grossly intact.. Skin: no lesions, no rash Lymphatic system. No LN neck axilla or groin. Results CBC & Chem 7: 06/07/19 09:09 Labs: Abnormal Lab Results - Last 24 Hours (Table) 06/07/19 Range/Units 09:09 WBC 15.3 H (3.8-10.6) k/uL RBC 4.20 L (4.30-5.90) m/uL Hgb 12.8 L (13.0-17.5) gm/dL Hct 38.9 L (39.0-53.0) % Neutrophils # 13.2 H (1.3-7.7) k/uL Assessment and Plan Assessment: -Right hip osteoarthritis, failed outpatient treatment, status post direct anterior total hip arthroplasty -History of chronic atrial fibrillation -Chronic diastolic CHF -Sleep apnea, uses CPAP -Cardiomyopathy Plan: Continue on current medication regime ,monitoring and symptomatic treatment. Home meds have been reviewed and resumed accordingly. PT. Aggressive pulmonary toileting with incentive spirometer reinforced. Pain management as per orthopedic surgery. Anticoagulated on Xarelto. Discharge planning in progress as per orthopedic surgery. Follow with PCP in 1 week. Further recommendations to follow. The impression and plan of care has been dictated as directed. : I performed a history and examination of this patient, discussed the same with the dictator. I agree with the dictator's note ,documented as a scribe. Any additional findings or plans will be noted.
== END 2019-06-07 12:01 | disposition home health service (06) | DRG 470 ==
LOC: 2ORMAIN 06:37 → EDSTATUS 07:30 → 4SSUR 11:28
PROVIDERS: ADMIT Orthopaedic Surgery; ATTEND Orthopaedic Surgery
PROC: 0SR904A Replacement of Right Hip Joint with Ceramic on Polyethylene Synthetic Substitute, Uncemented, Open Approach (ICD-10-PCS; principal; 2019-06-06 07:30)
DX: M16.11 Unilateral primary osteoarthritis, right hip (principal); I42.9 Cardiomyopathy, unspecified; I48.20 Chronic atrial fibrillation, unspecified; I50.32 Chronic diastolic (congestive) heart failure; E78.5 Hyperlipidemia, unspecified; G47.33 Obstructive sleep apnea (adult) (pediatric); I11.0 Hypertensive heart disease with heart failure; I27.20 Pulmonary hypertension, unspecified; Z79.01 Long term (current) use of anticoagulants; Z79.899 Other long term (current) drug therapy; Z80.7 Family history of other malignant neoplasms of lymphoid, hematopoietic and related tissues; Z82.49 Family history of ischemic heart disease and other diseases of the circulatory system; Z99.89 Dependence on other enabling machines and devices; Z88.0 Allergy status to penicillin; Z88.8 Allergy status to other drugs, medicaments and biological substances
CPT/HCPCS: 36415; 73501; 85025; 86850; 86900; 86901; 88300

== ENCOUNTER → 2019-06-17 | Outpatient (CLI) | payer BC, MEDICARE ==
--- NOTE | 2019-06-17 13:33 | US ---
EXAMINATION TYPE: US venous doppler duplex LE RT DATE OF EXAM: 06/17/2019 1:17 PM COMPARISON: NONE CLINICAL HISTORY: R22.41 Localized swelling, mass and lump, right lo. SIDE PERFORMED: Right TECHNIQUE: The lower extremity deep venous system is examined utilizing real time linear array sonog briana with graded compression, doppler sonography and color-flow sonography. VESSELS IMAGED: External Iliac Vein (EIV) Common Femoral Vein Deep Femoral Vein Greater Saphenous Vein * Femoral Vein Popliteal Vein Small Saphenous Vein * Proximal Calf Veins (* superficial vessels) Grayscale, color doppler, spectral doppler imaging performed of the deep veins of the right lower ext remity. There is normal flow, compressibility, vascular waveforms. Right Leg: Negative for DVT IMPRESSION: No sonographic evidence of deep venous thrombosis within the right lower extremity.
== END | disposition home or self-care (01) ==
LOC: RADUSWWP 12:52
PROVIDERS: ATTEND Family Medicine
DX: R22.41 Localized swelling, mass and lump, right lower limb (principal); Z88.0 Allergy status to penicillin

== ENCOUNTER 2019-07-25 23:43 | Emergency (ER) | payer BC, MEDICARE ==
[2019-07-25] MEDS ORDERED: HYDROmorphone 1 MG/ML 1 ML SYRINGE IVP STA (23:52)
[2019-07-25 23:56] VITALS: RESP 20; TEMP 97.9
[2019-07-26] MEDS ORDERED: SODIUM CHLORIDE 0.9% 500 ML 500 ML IV STA (00:37)
[2019-07-26] MEDS ORDERED: PROPOFOL 10 MG/ML 20 ML VIAL IV STA (00:37)
--- NOTE | 2019-07-26 00:41 | XR ---
EXAMINATION TYPE: XR Hip Complete RT DATE OF EXAM: 07/26/2019 COMPARISON: 06/06/2019 HISTORY: Pain TECHNIQUE: 2 views FINDINGS: There is a lateral posterior dislocation of the prosthetic femoral head. I see no fracture. IMPRESSION: Dislocated hip prosthesis.
--- NOTE | 2019-07-26 01:34 | XR ---
EXAMINATION TYPE: XR Hip Limited RT DATE OF EXAM: 07/26/2019 COMPARISON: Today HISTORY: Post reduction TECHNIQUE: Single view FINDINGS: There is anatomic reduction of the prosthetic hip joint. IMPRESSION: Anatomic reduction. No fracture seen
--- NOTE | 2019-07-26 02:40 | ED ---
Lower Extremity Injury HPI - General Chief Complaint: Extremity Injury, Lower Stated Complaint: R hip fracture Time Seen by Provider: 07/25/19 23:49 Source: patient, family, EMS Mode of arrival: EMS Limitations: no limitations - History of Present Illness Initial Comments: Thomas is a pleasant 64-year-old gentleman who presents the emergency department today via EMS for severe right hip pain. Patient had a right hip replacement 6 weeks ago, he's been healing well he states that this evening he placed his right foot up on the toilet seat and bent over to trim his toenails when he felt his hip pop, he then leaned himself backwards against the wall stood for a few minutes but was in severe pain so lowered himself to the ground and request his calling EMS for transport to the hospital. In route patient received 10 mg of morphine which did nothing to help the pain in his right hip. - Related Data Home Medications Medication Instructions Recorded Confirmed Furosemide 20 mg PO DAILY PRN 02/28/15 06/06/19 Rivaroxaban [Xarelto] 20 mg PO HS 02/28/15 06/06/19 Lisinopril [Prinivil] 20 mg PO HS 05/11/15 06/06/19 Metoprolol Succinate [Toprol XL] 50 mg PO W/SUPPER 02/09/16 06/06/19 Ascorbic Acid [Vitamin C] 1,000 mg PO BID 08/29/16 06/06/19 Atorvastatin [Lipitor] 10 mg PO DAILY 06/06/19 06/06/19 Previous Rx's Medication Instructions Recorded Dofetilide [Tikosyn] 125 mcg PO Q12HR #90 cap 05/11/15 Docusate [Colace] 100 mg PO DAILY #30 capsule 06/07/19 Hydrocodone/Acetaminophen [[place] 1 each PO Q6HR PRN #28 tab 06/07/19 5-325] Allergies Allergy/AdvReac Type Severity Reaction Status Date / Time Penicillins Allergy Unknown Verified 07/25/19 23:56 Childhood adhesive AdvReac Rash/Hives Verified 07/25/19 23:56 Review of Systems ROS Statement: Those systems with pertinent positive or pertinent negative responses have been documented in the HPI. ROS Other: All systems not noted in ROS Statement are negative. Past Medical History Past Medical History: Atrial Fibrillation, Heart Failure, Hypertension, Sleep Apnea/CPAP/BIPAP Additional Past Medical History / Comment(s): cardiomyopathy, EF 55%, pulmonary HTN, lower leg edema (improved with lasix), KASSIE with bipap, previous ablations with most recent 08/2016, History of Any Multi-Drug Resistant Organisms: None Reported Past Surgical History: Heart Catheterization, Orthopedic Surgery, Tonsillectomy Additional Past Surgical History / Comment(s): EP STUDY,CARDIAC ABLATION. ccath with normal coronaries, 03/09/15 ELIZABETH with cardioversion-successful for about 1-2 days per pt. SEVERAL BILATERAL ANKLE SURGERIES, CARDIAC ABLASION Past Anesthesia/Blood Transfusion Reactions: No Reported Reaction Past Psychological History: No Psychological Hx Reported Smoking Status: Unknown if ever smoked - Past Family History Mother Family Medical History: Cancer Additional Family Medical History / Comment(s): She had polio and loss the use of one arm, she had lymphoma and had a leg amputation. Father Family Medical History: Myocardial Infarction ([place]) Additional Family Medical History / Comment(s): Father of [place] at age 79yrs General Exam - General Exam Comments Initial Comments: Physical Exam GENERAL: Patient is laying on his left side, the right leg is shortened and internally rotated Patient is in acute distress secondary to pain HENT: Normocephalic, Atraumatic. EYES: PERRL, EOMI PULMONARY: Unlabored respirations. CARDIOVASCULAR: RRR Warm and well perfused extremities ABDOMEN: Non-distended SKIN: No rashes or bruising : Deferred NEUROLOGIC: Alert and oriented Normal speech Normal gait MUSCULOSKELETAL: Decreased range of motion of the right lower extremity secondary to pain, right lower extremity is shortened and internally rotated, strong DP and PT pulses, cap refill less than 2 seconds, neurovascularly intact PSYCHIATRIC: No SI/HI Limitations: no limitations Course Vital Signs 07/25/19 07/26/19 07/26/19 23:49 01:11 01:13 Temperature 97.9 F Pulse Rate 66 63 70 Respiratory 20 20 20 Rate Blood Pressure 145/85 132/86 132/86 O2 Sat by Pulse 99 100 132 H Oximetry 07/26/19 07/26/19 01:23 01:31 Temperature Pulse Rate 75 71 Respiratory 20 20 Rate Blood Pressure 134/76 130/70 O2 Sat by Pulse 99 99 Oximetry Procedures - [place] Protocol (Time Out) Procedure Performed:: reduction of right hip-sedation Performing Provider: Cherie Shelley Nurse: Chidi Meek Patient Identification (2 identifiers required): Chart, Verbal, Arm Band, Name, Birthdate, Medical Record Number 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 Confirmed: Identity, Site, Procedure, Consent Site: right hip Site Marked: Yes Site Verified With Patient/Guardian: Yes Final Confirmation: Procedure, Site, Laterality, Patient Position, Radiographs, Confirmed w/Provider - Orthopedic Joint Reduction Joint #1 Consent Obtained: verbal consent, written consent Side: right Joint Reduction Location: hip Analgesia: procedural sedation Technique Used: traction/counter-traction Post-Reduction Neuro Exam: intact Post-Reduction Vascular Exam: intact Post Reduction X-Ray Obtained: Yes Post Reduction X-Ray Results: reduced Splint Applied: Yes Patient Tolerated Procedure: well - Procedural Sedation Procedural Sedation Start Time: :11 Procedural Sedation Stop Time: :23 Indications: fracture/dislocation reduction ASA Class: II Mallampati Airway Score: 2 Preparation: awake overnight monitor applied, pulse oximeter, capnometry used, supplemental O2 applied, reversal agents at bedside, suction/airway equipment at bedside, IV secured IV Propofol Dose (mgs): 240 Complications: none Interventions: oxygen applied Patient Tolerated Procedure: well Medical Decision Making - Medical Decision Making The patient was seen and evaluated history is obtained from the patient Patient is 6 weeks status post total hip replacement he hyperflexed his hip while bending forward and dislocated he reports he heard a pop, on physical exam there is concern for dislocation at the x-rays were ordered to confirm X-ray confirmed a posterior dislocation Patient was prepped for sedation, written consent was obtained Respiratory therapy at bedside to assist with sedation Patient was appropriately sedated, the right hip subluxation was reduced with traction, reduction was confirmed with x-ray Patient tolerated the procedure very well, upon waking had no recall of the event but was relieved of his pain in his hip Patient really was placed in a knee immobilizer to decrease motion at the hip Patient was educated not to flex his hip, contact his orthopedic surgeon in the morning for follow-up Disposition Clinical Impression: S/P total hip arthroplasty, Posterior dislocation of hip, closed Disposition: HOME SELF-CARE Condition: Stable Instructions (If sedation given, give patient instructions): Moderate Sedation (ED) Additional Instructions: Leave the leg immobilizer in place Contact Dr. Malinda Cool tomorrow and advise him the ear hip dislocated and he had a habit reduced in the emergency department Do not flex the hip and knee greater than 30 which is been normal motion when walking Do not bend forward while bearing weight on the leg do not bend over to touch he r toes Is patient prescribed a controlled substance at d/c from ED?: No Referrals: Aldo Byrd DO [Primary Care Provider] - 1-2 days
[2019-07-26 02:43] VITALS: BP 132/73; PULSE 67
== END 2019-07-26 03:06 | disposition home or self-care (01) ==
LOC: EC 23:43
DX: T84.020A Dislocation of internal right hip prosthesis, initial encounter (principal); I48.91 Unspecified atrial fibrillation; I11.0 Hypertensive heart disease with heart failure; I50.9 Heart failure, unspecified; G47.33 Obstructive sleep apnea (adult) (pediatric); Z88.0 Allergy status to penicillin; Z91.048 Other nonmedicinal substance allergy status; Z79.01 Long term (current) use of anticoagulants; Z79.899 Other long term (current) drug therapy; Z99.89 Dependence on other enabling machines and devices; X50.1XXA Overexertion from prolonged static or awkward postures, initial encounter; W18.39XA Other fall on same level, initial encounter; Y93.89 Activity, other specified; Y92.002 Bathroom of unspecified non-institutional (private) residence as the place of occurrence of the external cause; Y79.2 Prosthetic and other implants, materials and accessory orthopedic devices associated with adverse incidents; Z82.69 Family history of other diseases of the musculoskeletal system and connective tissue
CPT/HCPCS: 73501; 73502; 99284; 27265; 99152; 96374; 96361 ×2; J1170; J2704

== ENCOUNTER → 2020-02-23 | Outpatient (CLI) | payer BC ==
[2020-02-23 17:59] LABS: African American GFR (CKD) 80.6 (60.0-200.0); Albumin 4.1 g/dL (3.80-4.90); Albumin/Globulin Ratio 1.95 (1.60-3.17); Anion Gap 9.6 mmol/L (4.00-12.00); BUN/Creat Ratio 12.73 Ratio (12.00-20.00); Calcium 8.9 mg/dL (8.7-10.3); Carbon Dioxide 26.4 mmol/L (21.6-31.8); Globulin 2.1 g/dL (1.6-3.3); Magnesium 1.9 mg/dL (1.5-2.4); Non-African American GFR(CKD) 69.6 (60.0-200.0); Potassium 4.1 mmol/L (3.5-5.5); Total Bilirubin 1.3 mg/dL (0.3-1.2); Total Protein 6.2 g/dL (6.2-8.2)
== END | disposition home or self-care (01) ==
LOC: LABWHC1 09:44
PROVIDERS: ATTEND Internal Medicine Interventional Cardiology
DX: D48.0 Neoplasm of uncertain behavior of bone and articular cartilage (principal)
CPT/HCPCS: 36415; 80053; 83735

== ENCOUNTER → 2020-05-17 | Outpatient (CLI) | payer BC ==
--- NOTE | 2020-05-17 18:54 | CONS ---
CONSULTATION DATE OF SERVICE: 05/17/2020 This 64-year-old gentleman has been re-evaluated in the sleep center for obstructive sleep apnea-hypopnea syndrome. HISTORY OF PRESENT ILLNESS/SLEEP-WAKE EVALUATION: Patient was diagnosed with obstructive sleep apnea in 2014. Disorder was in severe range. The patient was started on treatment with BiPAP and the patient did not come to the sleep center for 5 years. He has successfully used his BiPAP equipment for at least 5 years every night. His sleep schedule is from 10:30 p.m. until 6:30 a.m. No problems with falling asleep. No TV in bedroom. He wakes up from sleep once with nocturia. He denies significant excessive daytime sleepiness. [place] Sleepiness Scale is 2. I checked the patient's BiPAP unit. Pressure is 17/13 cm of water, usage 30/30 nights for more than 4 hours. Average usage 6.7 hours per night. Leak is 55 L/minute. Apnea- hypopnea index 12.0. The machine has a crack in it. MEDICATIONS: Tikosyn 125 mg twice a day, metoprolol 50 mg once a day, atorvastatin 10 mg once a day, lisinopril 10 mg once a day, Xarelto 20 mg once a day, furosemide 20 mg as needed. PAST MEDICAL HISTORY: Positive for atrial fibrillation episodes. He is status post multiple cardiac ablation procedures and defibrillations, hypertension, hyperlipidemia. PAST SURGICAL HISTORY: Right hip replacement. SOCIAL HISTORY: Negative for smoking. Alcohol consumption occasional. FAMILY HISTORY: Heart problems and sleep apnea. REVIEW OF SYSTEMS: Sometimes awakenings from sleep with nocturia. PHYSICAL EXAMINATION: GENERAL: A pleasant gentleman without distress. VITAL SIGNS: BP 133/86, HR 60, RR 16, height 6 feet 1-1/2 inches, weight 307.6 pounds, BMI 39.9. The patient's weight has increased by about 35 pounds since previous titration. Neck is 19 inches in circumference. Temperature 98.5, oxygen saturation at room air 98%. HEENT: PERRLA, EOMI. Evaluation of oropharynx showed tongue protrudes midline. Low position of soft palate. NECK: Supple. No JVD. Thyroid is not palpable. LUNGS: Clear to percussion and to auscultation. Good air exchange. No wheezing or rhonchi. HEART: S1, S2 regular. No murmurs, gallops or rubs. ABDOMEN: Obese. EXTREMITIES: No clubbing or cyanosis. CADD DRAFTER: Awake, alert, and oriented X3. Cranial nerves 2 to 7 intact. There is no fasciculation or atrophy. noted. No focal deficits observed. IMPRESSION: 1. Severe obstructive sleep apnea-hypopnea syndrome diagnosed 5 years ago. The patient demonstrated 100% compliance with BiPAP, but reading from BiPAP machine showed increased apnea-hypopnea index. 2. Low position of soft palate, wide neck; obstructive sleep apnea-hypopnea syndrome. 3. Obesity. BMI 39.9. Patient's weight increased by about 35 pounds since previous titration. 4. History of episodes of atrial fibrillation with multiple episodes of cardiac ablations and defibrillation. 5. Hypertension. 6. Hyperlipidemia. 7. Status post right hip replacement. PLAN: 1. BiPAP titration for re-evaluation of effective pressure at the present time after the increase in the patient's weight. 2. Losing weight. 3. Sleep hygiene with regular time in bed for at least 7-1/2 to 8 hours. 4. No driving if feeling any sleepiness. 5. To continue using BiPAP equipment every night. 6. Patient's BiPAP unit should be replaced. 7. Prescription for all necessary BiPAP supplies. Patient has been explained about necessity of regular follow-up visits in Sleep Clinic because again he was not seen for 5 years. His apnea-hypopnea index reading from the machine increased presently. Thank you very much for allowing me to participate in the management of your patient. Sincerely, Tim Valentin MD, PhD, FAASM Diplomat of [place] [place] [employer] [place] MMODL / IJN: [id number] /
== END | disposition home or self-care (01) ==
LOC: SLEEP 11:49
PROVIDERS: ATTEND Internal Medicine
DX: G47.33 Obstructive sleep apnea (adult) (pediatric) (principal); E66.9 Obesity, unspecified; I10 Essential (primary) hypertension; E78.5 Hyperlipidemia, unspecified; Z86.79 Personal history of other diseases of the circulatory system; Z96.641 Presence of right artificial hip joint; Z99.89 Dependence on other enabling machines and devices; Z68.39 Body mass index [BMI] 39.0-39.9, adult
CPT/HCPCS: 99211

== ENCOUNTER → 2020-07-23 | Outpatient (CLI) | payer BC | END | disposition home or self-care (01) | LOC: LABPAT 15:22 | PROVIDERS: ATTEND Surgery | DX: Z03.818 Encounter for observation for suspected exposure to other biological agents ruled out (principal) ==

== ENCOUNTER 2020-07-27 09:33 | Day surgery (SDC) | payer BC ==
[2020-07-24 16:12] VITALS: BMI 36.2
[~2020-07-27 09:33] MED LIST changes: -ACETAMINOPHEN TAB 500 MG TAB PO ONE; -HYDROmorphone 0.5 MG/0.5 ML SYRINGE IVP PRN; +LACTATED RINGERS 1,000 ML IV SCH; -LIDOCAINE 1% 20 ML VIAL (10MG/ML) FOR IV START INTRADERMA PRN; -MELOXICAM 7.5 MG TAB PO ONE; -ONDANSETRON 4 MG/2 ML VIAL IVP ONE; -ROPIVACAINE 246.25 MG, EPINEPHrine 0.5 MG, KETOROLAC 30 MG, cloNIDine HCL/PF 80 MCG, WA... MISCELLANE ONE; -TRANEXAMIC ACID 1,000 MG in SODIUM CHLORIDE 0.9% 100 ML IVPB ONE; -ceFAZolin 3 GM in SODIUM CHLORIDE 0.9% 100 ML IVPB ONE
[2020-07-27 10:02] VITALS: TEMP 97.8
[2020-07-27] MEDS ORDERED: LIDOCAINE 1% (10MG/ML) FOR IV START INTRADERMA ONE (10:03)
[2020-07-27] MEDS ORDERED: LACTATED RINGERS 1,000 ML IV ONE (10:03)
[2020-07-27] MEDS ORDERED: PROPOFOL 10 MG/ML 20 ML VIAL IV ONE (10:58)
--- NOTE | 2020-07-27 11:23 | P.GSHP ---
History of Present Illness H&P Date: 07/27/20 65-year-old male presents today for a colonoscopy. He recently did have a Cologuard test that did return positive. He has never had a colonoscopy previously. He denies any blood in his stool. He denies any recent abdominal pain. He has no additional complaints at this time. - Review of Systems All systems: negative Past Medical History Past Medical History: Atrial Fibrillation, Heart Failure, Hypertension, Sleep Apnea/CPAP/BIPAP Additional Past Medical History / Comment(s): cardiomyopathy, EF 55%, pulmonary HTN, lower leg edema (improved with lasix), KASSIE with bipap, previous ablations with most recent 08/2016, History of Any Multi-Drug Resistant Organisms: None Reported Past Surgical History: Heart Catheterization, Orthopedic Surgery, Tonsillectomy Additional Past Surgical History / Comment(s): EP STUDY,CARDIAC ABLATION. ccath with normal coronaries, 03/09/15 ELIZABETH with cardioversion-successful for about 1-2 days per pt. SEVERAL BILATERAL ANKLE SURGERIES, CARDIAC ABLASION, hip manipulation. Past Anesthesia/Blood Transfusion Reactions: No Reported Reaction Smoking Status: Never smoker - Past Family History Mother Family Medical History: Cancer Additional Family Medical History / Comment(s): She had polio and loss the use of one arm, she had lymphoma and had a leg amputation. Father Family Medical History: Myocardial Infarction (AR) Additional Family Medical History / Comment(s): Father of AR at age 79yrs Medications and Allergies Home Medications Medication Instructions Recorded Confirmed Type Rivaroxaban [Xarelto] 20 mg PO HS 02/28/15 07/24/20 History Dofetilide [Tikosyn] 125 mcg PO Q12HR #90 cap 05/11/15 07/24/20 Rx lisinopriL [Prinivil] 20 mg PO HS 05/11/15 07/24/20 History Metoprolol Succinate [Toprol XL] 50 mg PO HS 02/09/16 07/24/20 History Ascorbic Acid [Vitamin C] 1,000 mg PO BID 08/29/16 07/24/20 History Atorvastatin [Lipitor] 10 mg PO HS 06/06/19 07/24/20 History Docusate [Colace] 100 mg PO DAILY #30 capsule 06/07/19 07/24/20 Rx Allergies Allergy/AdvReac Type Severity Reaction Status Date / Time Penicillins Allergy Unknown Verified 07/24/20 15:52 Childhood adhesive AdvReac Rash/Hives Verified 07/24/20 15:52 Surgical - Exam Osteopathic Statement: *. No significant issues noted on an osteopathic structural exam other than those noted in the History and Physical/Consult. Vital Signs Temp Pulse Resp BP Pulse Ox 97.8 F 67 18 166/89 97 07/27/20 10:02 07/27/20 10:02 07/27/20 10:02 07/27/20 10:02 07/27/20 10:02 - General well nourished, no distress - Eyes normal ocular movement - ENT no hearing loss - Neck trachea midline - Respiratory normal respiratory effort - Abdomen Abdomen: soft, non tender - Psychiatric oriented to time, oriented to person, oriented to place Assessment and Plan Plan: Plan is for colonoscopy based on the patient's history of a positive Cologuard test. Further recommendations to be made after procedure. Risks, benefits and alternatives were provided to the patient.
--- NOTE | 2020-07-27 11:27 | P.PCN ---
Date of Procedure: 07/27/20 Preoperative Diagnosis: Positive cologuard test Postoperative Diagnosis: Polyp of the hepatic flexure Polyp of the descending colon Polyp of the sigmoid colon Diverticulosis Procedure(s) Performed: Colonoscopy with hot snare polypectomy Anesthesia: MAC Surgeon: Effie Bella Pathology: other (Polyp of the hepatic flexure, polyp of the descending colon, polyp sigmoid colon) Condition: stable Disposition: same day Indications for Procedure: 65-year-old male presented with a positive cologuard test. He has never had a colonoscopy. Plan is for colonoscopy based on positive test finding. Risks, benefits and alternatives to the procedure were provided to the patient. Operative Findings: Polyp of the hepatic flexure Polyp of the descending colon polyp of the sigmoid colon Diverticulosis Description of Procedure: The patient was brought into the endoscopy suite. He was then placed in left lateral decubitus position and adequate sedation was achieved using conscious sedation. A digital rectal exam was performed and mild internal hemorrhoids were palpated. An endoscope was then placed in the rectum and advanced to the cecum as identified by landmarks including the appendiceal orifice and the ileocecal valve. The prep was good. The colonoscope was then slowly withdrawn, examining for any mucosal abnormalities. The cecum, ascending, transverse, descending and sigmoid colon were visualized adequately. Multiple polyps were found throughout the colon. A polyp was noted in the hepatic flexure. This was removed with hot snare polypectomy. An additional polyp was noted in the descending colon. This was also removed with hot snare polypectomy. A final polyp was also noted in the sigmoid colon. This was removed with hot snare polypectomy. The stasis was noted to be maintained. Scattered diverticula were noted throughout the sigmoid colon.. Retroflexion was performed in the rectum and mild internal hemorrhoids were visible. Excess air was removed, the colonoscope withdrawn and the procedure terminated. The patient was then transferred to the recovery unit in stable condition. Repeat colonoscopy should be performed in 3 years due to the patient having multiple colon polyps..
[2020-07-27 11:54] VITALS: BP 106/76; PULSE 59; RESP 16
== END 2020-07-27 12:20 | disposition home or self-care (01) ==
LOC: ORWHC2ENDO 09:33
PROVIDERS: ATTEND Surgery
DX: D12.3 Benign neoplasm of transverse colon (principal); D12.5 Benign neoplasm of sigmoid colon; D12.4 Benign neoplasm of descending colon; K57.30 Diverticulosis of large intestine without perforation or abscess without bleeding; K64.8 Other hemorrhoids; I48.91 Unspecified atrial fibrillation; I11.0 Hypertensive heart disease with heart failure; I50.9 Heart failure, unspecified; G47.33 Obstructive sleep apnea (adult) (pediatric); E78.5 Hyperlipidemia, unspecified; Z99.89 Dependence on other enabling machines and devices; Z98.890 Other specified postprocedural states; I42.9 Cardiomyopathy, unspecified; I27.20 Pulmonary hypertension, unspecified; Z83.1 Family history of other infectious and parasitic diseases; Z80.7 Family history of other malignant neoplasms of lymphoid, hematopoietic and related tissues; Z82.49 Family history of ischemic heart disease and other diseases of the circulatory system; Z79.01 Long term (current) use of anticoagulants; Z79.899 Other long term (current) drug therapy; Z88.0 Allergy status to penicillin; Z91.09 Other allergy status, other than to drugs and biological substances
CPT/HCPCS: 88305; 45385; J2704

== ENCOUNTER → 2020-08-23 | Outpatient (CLI) | payer BC | END | disposition home or self-care (01) | LOC: LABPAT 12:58 | PROVIDERS: ATTEND Orthopaedic Surgery | DX: Z01.812 Encounter for preprocedural laboratory examination (principal) | CPT/HCPCS: 87070 ==

== ENCOUNTER → 2020-08-30 | Outpatient (CLI) | payer BC ==
--- NOTE | 2020-08-31 00:56 | SFUN ---
SLEEP CENTER FOLLOW UP NOTE DATE OF SERVICE: 08/30/2020. 65-year-old gentleman has been followed in Sleep Center for treatment of obstructive sleep apnea-hypopnea syndrome. Recently, the patient had CPAP-BiPAP titration and received new BiPAP unit. Today is his first visit after he was started on treatment with new BiPAP. The patient is able to use BiPAP equipment every night for the whole night, likes his machine, does not have any problems related to mask fitting, pressure for humidification. [place] Sleepiness Scale today is 6, which is normal. I checked a BiPAP unit. Pressure is 13/9. Usage is 30 out of 30 nights for more than 4 hours with average usage is 6.7 hours per night. Leak is 20 L/minute, which is borderline. Apnea-hypopnea index is only 1.1, which is absolutely perfect. Medications are: Tikosyn 125 mg twice a day, metoprolol 50 mg once a day. Atorvastatin 10 mg once a day, lisinopril 10 mg once a day. Xarelto 20 mg once a day. Furosemide 20 mg as needed. PHYSICAL EXAM: Patient in no distress. BP 142/88, HR 62, RR 15, weight 311.4, temperature 98.1. Oxygen saturation at room air 95%. OROPHARYNX: Low position of soft palate. NECK: Supple, no JVD. Thyroid is not palpable. LUNGS: Clear to percussion and to auscultation. Good air exchange. No wheezing or rhonchi. HEART: S1, S2 regular. No murmurs, gallops, or rubs. ABDOMEN: Obese. Soft and nontender. Bowel sounds are present. No organomegaly appreciated. EXTREMITIES: No clubbing or cyanosis. COLLAR CUTTER: Awake, alert, and oriented X3. Cranial nerves 2 to 7 intact. There is no fasciculation or atrophy. noted. No focal deficits observed. IMPRESSION: 1. Obstructive sleep apnea-hypopnea syndrome. The patient demonstrated 100% compliance with treatment benefitting from treatment. Normal respiration on BiPAP. 2. Obesity. 3. History of atrial fibrillation, status post cardiac ablation procedures. 4. Hypertension. 5. Hyperlipidemia. 6. Status post right hip replacement. PLAN: 1. Patient will continue to use PAP equipment every night for the whole night. 2. Sleep hygiene with regular time in bed for at least 7-1/2 to 8 hours. 3. Precautions related to driving. No driving if feeling sleepiness. 4. I will maintain all necessary prescription for PAP supplies including mask, tube, filters. 5. Watching weight. 6. No driving if feeling sleepiness. 7. Follow-up visit in 6 months or earlier if patient has any problems. Thank you very much for allowing me to participate in management of your patient. Sincerely, Tim Valentin MD, PhD, FAASM Diplomat of [employer] Starch Mangle Tender [facility] [place] MMODL / MALCOMN: [id number] /
== END | disposition home or self-care (01) ==

== ENCOUNTER 2020-09-10 12:13 | Day surgery (SDC) | payer BC ==
[2020-09-04 09:25] VITALS: BMI 36.2
--- NOTE | 2020-09-09 12:50 | HP ---
HISTORY AND PHYSICAL REASON FOR ADMISSION: Surgery 09/10/2020 HISTORY OF PRESENT ILLNESS: Moise Yadav is a 65-year-old gentleman seen with symptomatic right knee osteoarthritis. We discussed options for treatment. He elected to proceed with right total knee arthroplasty. Consent regarding the procedure was obtained. Medical clearance was provided by Dr. Luigi Byrd. PAST MEDICAL HISTORY: Hypertension, hyperlipidemia. PAST SURGICAL HISTORY: Knee arthroscopy, total hip arthroplasty, cardiac ablation. MEDICATIONS: Daily medications: Lipitor, lisinopril, metoprolol. ALLERGIES: PENICILLIN. SOCIAL HISTORY: He denies current tobacco use. PHYSICAL EVALUATION OF THE RIGHT KNEE: Range of motion is full -1 to 120. Tenderness medial joint line. Crepitus medial patellofemoral compartments with range of motion. Pain with patellofemoral compression. Ligaments stable. Hip rotation without pain. Distal neurovascular exam is intact. RADIOGRAPHS: Radiographs of the right knee reveal severe osteoarthritic changes. IMPRESSION: 1. Right knee osteoarthritis. 2. Hypertension. 3. Hyperlipidemia. 4. Atrial fibrillation. PLAN: Right total knee arthroplasty. Surgery 09/10/2020. MMODL / IJN: [id number] /
[~2020-09-10 12:13] MED LIST changes: +ACETAMINOPHEN TAB 500 MG TAB PO PRN; +DEXAMETHASONE SOD PHOSPHATE 4 MG/ML 1 ML VIAL IV ONE; -LACTATED RINGERS 1,000 ML IV SCH; +MELOXICAM 7.5 MG TAB PO PRN; +MIDAZOLAM 2 MG/2 ML VIAL IV PRN; +ONDANSETRON 4 MG/2 ML VIAL IVP ONE; +TRANEXAMIC ACID 1,000 MG in SODIUM CHLORIDE 0.9% 100 ML IVPB PRN; +ceFAZolin 3 GM in SODIUM CHLORIDE 0.9% 100 ML IVPB PRN
[2020-09-10] MEDS ORDERED: LIDOCAINE 1% (10MG/ML) FOR IV START INTRADERMA ONE (13:15)
[2020-09-10] MEDS: LACTATED RINGERS 1,000 ML IV SCH ×2 (13:15→22:11)
[2020-09-10] MEDS ORDERED: fentaNYL (PF) 50 MCG/ML 2 ML AMP IV ONE (13:57)
[2020-09-10] MEDS ORDERED: MIDAZOLAM 2 MG/2 ML VIAL IV ONE ×2 (13:57→14:05)
--- NOTE | 2020-09-10 14:17 | P.ANPRN ---
Procedure Note - Anesthesia - Nerve Block Performed Right Adductor Canal Infusion Time Out Performed: Yes (1357) Date of Procedure: 09/10/20 Procedure Start Time: 13:58 Procedure Stop Time: 14:04 Location of Patient: PreOp Indication: Acute Post-Operative Pain, Requested by Surgeon Specifically requested for management of pain by DrBolivar: Jimenez Huntley Sedation Type: Sedate with meaningful contact maintained Preparation: Sterile Prep Position: Supine Catheter Depth at Skin (cm): 10 Catheter: Indwelling Needle Types: Pajunk Needle Gauge: 21 Ultrasound used to visualize needle placement: Yes Ultrasound used to observe medication spread: Yes Injectate: 0.5% Ropivacaine (see comment for volume) (20CC) Blood Aspirated: No Pain Paresthesia on Injection Noted: No Resistance on Injection: Normal Image Stored and Saved: Yes Events: Uneventful and Well Tolerated
[2020-09-10] MEDS ORDERED: PROPOFOL 10 MG/ML 20 ML VIAL IV ONE (14:51)
[2020-09-10] MEDS ORDERED: fentaNYL (PF) 50 MCG/ML 2 ML AMP ONE (14:51)
[2020-09-10] MEDS ORDERED: LIDOCAINE 1% INJ 10MG/ML (20 ML MDV) ONE (14:51)
[2020-09-10] MEDS ORDERED: MIDAZOLAM 2 MG/2 ML VIAL ONE (14:51)
[2020-09-10] MEDS ORDERED: ePHEDrine SULFATE/0.9% NACL/PF 50 MG/5 ML SYRINGE IV ONE (14:51)
[2020-09-10] MEDS ORDERED: HYDROmorphone (PF) 1 MG/ML ONE (14:51)
[2020-09-10] MEDS ORDERED: SUCCINYLCHOLINE CHLORIDE 100 MG/5 ML SYR IV ONE (14:51)
[2020-09-10] MEDS ORDERED: ROPIVACAINE 0.2%-NS ON-Q PUMP 1,090 MG, EMPTY PAIN BALL 1 EACH MISCELLANE PRN (15:00)
[2020-09-10] MEDS ORDERED: ceFAZolin 1,000 MG in SODIUM CHLORIDE 0.9% 1,000 ML IRRIGATION ONE (15:25)
[2020-09-10] MEDS: ROPIVACAINE/EPI/CLONIDINE/KET 50 ML SYRINGE MISCELLANE PRN ×3 (15:36→16:31)
[2020-09-10] MEDS ORDERED: LACTATED RINGERS 1,000 ML IV ONE (16:30)
[2020-09-10] MEDS ORDERED: NALOXONE 0.4 MG/ML 1 ML VIAL IV PRN (16:59)
[2020-09-10] MEDS ORDERED: ONDANSETRON 4 MG/2 ML VIAL IVP PRN (16:59)
[2020-09-10] MEDS ORDERED: HYDROmorphone 0.2 MG/1 ML SYRINGE IVP PRN (16:59)
[2020-09-10] MEDS ORDERED: HYDROmorphone 1 MG/ML 1 ML SYRINGE IVP PRN (16:59)
[2020-09-10] MEDS ORDERED: HYDROcodone/APAP 7.5-325MG 1 EACH TAB PO PRN (16:59)
[2020-09-10] MEDS ORDERED: HYDROmorphone 0.5 MG/0.5 ML SYRINGE IVP PRN (16:59)
[2020-09-10] MEDS ORDERED: HYDROcodone/APAP 5-325MG 1 EACH TAB PO PRN (16:59)
--- NOTE | 2020-09-10 16:59 | P.OP ---
Date of Procedure: 09/10/20 Preoperative Diagnosis: Right knee osteoarthritis Postoperative Diagnosis: Right knee osteoarthritis Procedure(s) Performed: Right total knee arthroplasty Implants: 1. Depuy attune size 10 cruciate retaining cemented femur 2. Depuy attune size 9 fixed bearing cemented tibial baseplate 3. Depuy attune size 10 fixed bearing cruciate retaining 10 mm polyethylene tibial insert 4. Depuy attune 41 mm all polyethylene cemented patella Anesthesia: GETA, regional (Adductor canal catheter), local Surgeon: Jimenze Huntley Roadway Engineer #1: Gurdeep Castaneda Estimated Blood Loss (ml): 45 Pathology: other (Bone) Condition: stable Disposition: PACU Indications for Procedure: 65-year-old patient seen with symptomatic right knee osteoarthritis. After treatment options were discussed, he elected to proceed with total knee arthroplasty. Operative Findings: See description of procedure Description of Procedure: Patient was taken to the operative suite after having an adductor canal catheter placed by the department of anesthesia. Patient underwent a general anesthetic by the department of anesthesia. Patient was given preoperative IV intake antibiotics and TXA. A well-padded tourniquet was placed about the right lower extremity. The lower extremity was then prepped and draped in the normal sterile orthopedic fashion. The extremity was elevated, a tourniquet was insu fflated to 300. A standard anterior incision was made sharply through skin. Dissection was taken down through the subcutaneous soft tissues down to the extensor mechanism. A medial arthrotomy was performed, patella was everted and knee was flexed. There was advanced osteoarthritis noted. I introduced my distal intramedullary femoral drill. I then introduced the distal femoral cutting jig. Esteban SAMUELS secured the cutting jig with 2 pins. I held retractors in position while Esteban SAMUELS performed the distal femoral resection through the guide area we now removed her distal femoral cutting guide. We now placed our 4-in-1 femoral cutting block and positioned and it was secured with 2 pins by Esteban SAMUELS while I held the block in position. The distal femoral finishing was now completed. A proximal tibial cutting guide was positioned. I held the guide in the appropriate position with both hands well Esteban SAMUELS inserted stabilizing pins into the guide. Proximal tibial cut was made. We now placed a trial femoral component into position, along with an appropriate size tibial tray and insert. We now took the knee through range of motion and had full extension good flexion and good overall soft tissue balance noted. The patella was everted and stabilized with 2 towel clips held by Esteban SAMUELS while I performed a flush with patellar quad tendon utilizing a fresh sawblade. We templated the patella, appropriate drill holes were made. An appropriate trial patella was positioned, knee was taken through full range of motion with the patella tracking very nicely. The trial patella was removed. Drill holes were made through the femoral component. All trial components were removed after marking off the appropriate rotation of the tibia. Retractors were now positioned along the proximal tibia. An appropriate keel punch was made with the appropriate size tibial guide by myself on Esteban SAMUELS assisted by holding retractors. At this point appropriate size implants were chosen and opened. The joint was irrigated copiously with pulse lavage mechanical irrigation. The posterior capsule was infiltrated with local analgesic. The wound was irrigated with pulse lavage mechanical irrigation. We mixed antibiotic methylmethacrylate. We placed the knee into flexion. We placed multiple retractors assisted by Esteban SAMUELS to expose the proximal tibia. Once the methyl methacrylate was ready, the tibial component was cemented into place removing any excess methylmethacrylate form by both myself and Esteban SAMUELS. The femoral component was cemented into place removing the removing any excess methylmethacrylate performed by both myself and Esteban SAMUELS. We then inserted the appropriate size polyethylene tibial insert. We made sure that it was locked into position. We took the knee into full extension, and then back in a flexion making sure we had removed any excess methylmethacrylate. The patellar component was then cemented down and secured with clamp. Excess methylmethacrylate removed. We kept the knee in full extension, patellar clamp in position until methylmethacrylate had hardened. Once it had hardened the patellar clamp was removed. The knee was taken through full range of motion. The patella tracked nicely. There was good soft tissue balancing. The tourniquet was now released. Additional hemostasis was achieved via electrocautery. A second gram of TXA was given. The wound again was irrigated with pulse lavage mechanical irrigation. The superficial soft tissues were infiltrated local analgesic. The extensor mechanism was repaired with Vicryl. We checked the repair with range of motion and it was stable. The subcutaneous soft tissues were repaired with Vicryl in layers. The skin was approximated with pernio/Dermabond. Sterile dressings were applied followed by loose web roll and Jeff bandage. The patient was transferred to a bed, and taken to recovery in stable and satisfactory condition. Esteban SAMUELS assisted with this complex procedure.
[2020-09-10] MEDS: HYDROmorphone 0.5 MG/0.5 ML SYRINGE IVP PRN ×2 (17:38→17:45)
--- NOTE | 2020-09-10 17:57 | XR ---
EXAMINATION TYPE: XR knee limited RT DATE OF EXAM: 09/10/2020 COMPARISON: 07/13/2020 HISTORY: Postop knee surgery TECHNIQUE: 2 views FINDINGS: There is a right knee prosthesis. Components are in anatomic position. IMPRESSION: No complicating process seen.
[2020-09-10] MEDS ORDERED: SENNOSIDES-DOCUSATE SODIUM 1 EACH TAB PO SCH (21:00)
[2020-09-10] MEDS: ceFAZolin 3 GM in SODIUM CHLORIDE 0.9% 100 ML IVPB SCH (22:11)
[2020-09-11] MEDS: LACTATED RINGERS 1,000 ML IV SCH ×2 (04:44→07:12)
[2020-09-11] MEDS ORDERED: ENOXAPARIN 30 MG/0.3 ML SYRINGE SQ SCH (06:00)
[2020-09-11 06:26] LABS: Basophils % (A) 0 %; Eosinophils % (A) 0 %; HCT 42.1 % (39.0-53.0); HGB 14.3 gm/dL (13.0-17.5); Lymphocytes # (A) 0.8 k/uL (1.0-4.8); Lymphocytes % (A) 4 %; MCH 30.9 pg (25.0-35.0); MCV 90.8 fL (80.0-100.0); Mean Platelet Volume 6.8; Monocytes % (A) 5 %; Neutrophils # (A) 17.5 k/uL (1.3-7.7); Neutrophils % (A) 90 %; Platelet Count 181 k/uL (150-450); RBC 4.63 m/uL (4.30-5.90); RDW 12.7 % (11.5-15.5); WBC 19.4 k/uL (3.8-10.6)
--- NOTE | 2020-09-11 06:45 | P.PN ---
Progress Note - Text Progress Note Date: 09/11/20 POD 1 TKR, Doing well, pain controlled well, no use of PRN over night. vas 2/10 posterior knee mostly. able to ambulate. site clean and dry.
[2020-09-11] MEDS: ceFAZolin 3 GM in SODIUM CHLORIDE 0.9% 100 ML IVPB SCH (07:31)
[2020-09-11 07:53] VITALS: BP 137/86; PULSE 69; RESP 16; TEMP 98.1
[2020-09-11] MEDS ORDERED: DOFETILIDE 125 MCG CAP PO SCH (09:45)
--- NOTE | 2020-09-11 11:34 | P.CONS ---
History of Present Illness - Reason for Consult Leukocytosis - History of Present Illness This is a pleasant 65-year-old male was admitted for right knee arthroplasty patient is clinically doing well patient pain free patient is on anticoagulation with the Xarelto for atrial fibrillation patient is presently sinus rhythm at this time. Patient will be resumed on his home anticoagulation patient doesn't have any fever chills doesn't denied any dysuria doesn't have full catheter patient is being discharged today which is appropriate patient has a right abductor canal catheter for pain management. Patient will be discharged on this catheter. Patient does have history of sleep apnea does have a history of pulmonary hypertension. Patient apparently had a recent fall at home because of which she is requesting a head CT to rule out any intracranial hemorrhage head CT will be obtained. Patient at this time is not confused. Review of Systems REVIEW OF SYSTEMS: CONSTITUTIONAL: No fever, no malaise, no fatigue. HEENT: No recent visual problems or hearing problems. Denied any sore throat. CARDIOVASCULAR: No chest pain, orthopnea, PND, no palpitations, no syncope. PULMONARY: No shortness of breath, no cough, no hemoptysis. GASTROINTESTINAL: No diarrhea, no nausea, no vomiting, no abdominal pain. NEUROLOGICAL: No headaches, no weakness, no numbness. HEMATOLOGICAL: Denies any bleeding or petechiae. GENITOURINARY: Denies any burning micturition, frequency, or urgency. MUSCULOSKELETAL/RHEUMATOLOGICAL: Denies any joint pain, swelling, or any muscle pain. ENDOCRINE: Denies any polyuria or polydipsia. The rest of the 14-point review of systems is negative. Past Medical History Past Medical History: Atrial Fibrillation, Heart Failure, Hyperlipidemia, Hypertension, Osteoarthritis (OA), Sleep Apnea/CPAP/BIPAP Additional Past Medical History / Comment(s): cardiomyopathy, EF 55%, pulmonary HTN, lower leg edema-wears compression stockings, KASSIE with bipap History of Any Multi-Drug Resistant Organisms: None Reported Past Surgical History: Cardiac Ablation, Heart Catheterization, Joint Replacement, Orthopedic Surgery, Tonsillectomy Additional Past Surgical History / Comment(s): EP STUDY, CARDIAC ABLATION x3. 7 several cardioversions, SEVERAL BILATERAL ANKLE SURGERIES, right hip replaced, colonoscopy; 2020 TRK arthroplasty Past Anesthesia/Blood Transfusion Reactions: No Reported Reaction Past Psychological History: No Psychological Hx Reported Additional Psychological History / Comment(s): Pt resides with his spouse. He is independent. He uses no assistive device. He drives. JUST RECENTLY RETIRED FROM [employer]. NO SERVICE IN HIS LIFETIME. Smoking Status: Never smoker Past Alcohol Use History: Rare Additional Past Alcohol Use History / Comment(s): Pt states he is now not drinking any alcohol. Past Drug Use History: None Reported - Past Family History Mother Family Medical History: Cancer Additional Family Medical History / Comment(s): She had polio and loss the use of one arm, she had lymphoma and had a leg amputation. Father Family Medical History: Myocardial Infarction ([place]) Additional Family Medical History / Comment(s): Father of [place] at age 79yrs Medications and Allergies Home Medications Medication Instructions Recorded Confirmed Type Rivaroxaban [Xarelto] 20 mg PO HS 02/28/15 09/04/20 History Dofetilide [Tikosyn] 125 mcg PO Q12HR #90 cap 05/11/15 09/04/20 Rx lisinopriL [Prinivil] 20 mg PO HS 05/11/15 09/04/20 History Metoprolol Succinate [Toprol XL] 50 mg PO HS 02/09/16 09/04/20 History Atorvastatin [Lipitor] 10 mg PO HS 06/06/19 09/04/20 History Furosemide [Lasix] 20 mg PO MOTUWE 09/04/20 09/04/20 History Allergies Allergy/AdvReac Type Severity Reaction Status Date / Time Penicillins Allergy Unknown Verified 09/10/20 12:57 Childhood Physical Exam Vitals: Vital Signs Temp Pulse Resp BP Pulse Ox 09/11/20 07:52 98.1 F 69 16 137/86 98 09/11/20 00:42 98.5 F 77 14 101/63 94 L 09/10/20 20:42 85 121/77 09/10/20 20:00 78 123/82 09/10/20 19:45 75 131/84 09/10/20 19:15 77 133/78 09/10/20 19:00 80 145/83 09/10/20 18:45 79 142/83 09/10/20 18:30 74 150/80 98 09/10/20 18:00 72 16 127/63 96 09/10/20 17:45 75 16 132/70 94 L 09/10/20 17:30 68 17 138/69 98 09/10/20 17:15 97.4 F L 74 16 133/66 09/10/20 14:08 57 L 16 130/76 99 09/10/20 13:00 98.2 F 61 16 146/82 96 Intake and Output 09/10/20 09/11/20 09/11/20 22:59 06:59 14:59 Intake Total 351 Output Total 45 Balance 306 Intake: IV 351 Output: Estimated Blood Loss 45 Other: Voiding Method Toilet # Voids 1 Weight 140.4 kg PHYSICAL EXAMINATION: GENERAL: The patient is alert and oriented x3, not in any acute distress. Well developed, well nourished. HEENT: Pupils are round and equally reacting to light. EOMI. No scleral icterus. No conjunctival pallor. Normocephalic, atraumatic. No pharyngeal erythema. No thyromegaly. CARDIOVASCULAR: S1 and S2 present. No murmurs, rubs, or gallops. PULMONARY: Chest is clear to auscultation, no wheezing or crackles. ABDOMEN: Soft, nontender, nondistended, normoactive bowel sounds. No palpable organomegaly. MUSCULOSKELETAL: No joint swelling or deformity. EXTREMITIES: No cyanosis, clubbing, or pedal edema. NEUROLOGICAL: Gross neurological examination did not reveal any focal deficits. SKIN: No rashes. Results CBC & Chem 7: 09/11/20 05:38 Labs: Abnormal Lab Results - Last 24 Hours (Table) 09/11/20 Range/Units 05:38 WBC 19.4 H (3.8-10.6) k/uL Neutrophils # 17.5 H (1.3-7.7) k/uL Lymphocytes # 0.8 L (1.0-4.8) k/uL Assessment and Plan Plan: Leukocytosis: Reactive no further intervention or testing is necessary at this time. -Atrial fibrillation presently rate controlled sinus rhythm continue with anticoagulation. -Pulmonary hypertension, sleep apnea patient will continue his CPAP machine -Hyperlipidemia -Hypertension -Documented history of congestive heart failure although echocardiogram showed normal ejection fraction unsure whether patient has diastolic dysfunction. Patient can be discharged from [facility]
--- NOTE | 2020-09-11 12:44 | P.PN ---
Progress Note - Text Progress Note Date: 09/11/20 Patient is seen status post right total knee arthroplasty. His pain is under control. He is doing quite well. He would like to be discharged. Incision area stable. Distal neurovascular exam is intact. Negative Kojo, negative Homans. Impression: Status post right total knee arthroplasty Plan: Will discharge to home today
--- NOTE | 2020-09-11 12:52 | P.DS ---
Providers Date of admission: 09/10/2020 Expected date of discharge: 09/11/20 Attending physician: Jimenez Huntley Consults: 09/10/20 16:59 Consult Physician Routine Consulting Provider: Aldo Byrd Consult Reason/Comments: Medical management Do you want consulting provider notified?: Yes Primary care physician: Aldo Byrd [facility] Course: 65 -year-old gentleman underwent right total knee arthroplasty. He tolerated the procedure well. His postoperative course was unremarkable. Procedures: Right total knee arthroplasty Patient Condition at Discharge: Good Plan - Discharge Summary Discharge Rx Participant: Yes New Discharge Prescriptions: New HYDROcodone/APAP 7.5-325MG [[place] 7.5-325] 1 - 2 each PO Q6HR PRN #56 tab PRN Reason: Pain Aspirin [Adult Low Dose Aspirin EC] 81 mg PO BID #60 tablet. Docusate [Colace] 100 mg PO DAILY #30 capsule No Action Rivaroxaban [Xarelto] 20 mg PO HS Dofetilide [Tikosyn] 125 mcg PO Q12HR #90 cap lisinopriL [Prinivil] 20 mg PO HS Metoprolol Succinate [Toprol XL] 50 mg PO HS Atorvastatin [Lipitor] 10 mg PO HS Furosemide [Lasix] 20 mg PO MOTUWE Discharge Medication List Rivaroxaban [Xarelto] 20 mg PO HS 02/28/15 [History] Dofetilide [Tikosyn] 125 mcg PO Q12HR #90 cap 05/11/15 [Rx] lisinopriL [Prinivil] 20 mg PO HS 05/11/15 [History] Metoprolol Succinate [Toprol XL] 50 mg PO HS 02/09/16 [History] Atorvastatin [Lipitor] 10 mg PO HS 06/06/19 [History] Furosemide [Lasix] 20 mg PO MOTUWE 09/04/20 [History] Aspirin [Adult Low Dose Aspirin EC] 81 mg PO BID #60 tablet. 09/11/20 [Rx] Docusate [Colace] 100 mg PO DAILY #30 capsule 09/11/20 [Rx] HYDROcodone/APAP 7.5-325MG [[place] 7.5-325] 1 - 2 each PO Q6HR PRN #56 tab 09/11/20 [Rx] Follow up Appointment(s)/Referral(s): Aldo Byrd DO [Primary Care Provider] - 09/18/20 1:20 pm [facility],Equipment [NON-STAFF] - (Please call [facility] once home to arrange delivery of Continuous Passive Motion (CPM) machine) Jimenez Huntley DO [Doctor of Osteopathic Medicine] - 09/26/20 2:50 pm [facility], [NON-STAFF] - ([facility] will call you to set up your first visit. ) Activity/Diet/Wound Care/Special Instructions: 1. Weight-bear as tolerated with walker 2. Range of motion as tolerated 3. Do not remove dressing without home health care 4. Contact office with any concerns or questions Discharge Disposition: HOME WITH HOME HEALTH SERVICES
[2020-09-11] MEDS ORDERED: RIVAROXABAN 20 MG TAB PO SCH (21:00)
[2020-09-11] MEDS ORDERED: ATORVASTATIN 10 MG TAB PO SCH (21:00)
[2020-09-11] MEDS ORDERED: METOPROLOL SUCCINATE (ER) 50 MG TAB.ER.24H PO SCH (21:00)
== END 2020-09-11 13:17 | disposition home health service (06) ==
LOC: OR 12:13 → 4SSUR 17:11 → OR 09-11 13:17
PROVIDERS: ATTEND Orthopaedic Surgery
DX: M17.11 Unilateral primary osteoarthritis, right knee (principal); D72.829 Elevated white blood cell count, unspecified; I11.0 Hypertensive heart disease with heart failure; I50.9 Heart failure, unspecified; I48.91 Unspecified atrial fibrillation; E78.5 Hyperlipidemia, unspecified; I42.9 Cardiomyopathy, unspecified; G47.33 Obstructive sleep apnea (adult) (pediatric); I27.20 Pulmonary hypertension, unspecified; Z91.048 Other nonmedicinal substance allergy status; Z88.0 Allergy status to penicillin; Z99.89 Dependence on other enabling machines and devices; Z79.01 Long term (current) use of anticoagulants; Z79.899 Other long term (current) drug therapy; Z96.641 Presence of right artificial hip joint; Z98.890 Other specified postprocedural states; Z82.49 Family history of ischemic heart disease and other diseases of the circulatory system; Z80.9 Family history of malignant neoplasm, unspecified
CPT/HCPCS: 97110; 97161; 64448; 76942; 85025; 73560; 27447; C1776; C1713; J2250; J1100; J0690 ×3; J2405; J3010; J1650; J1170; J2795; 88300

== ENCOUNTER 2020-09-15 23:10 | Observation (INO) | payer BC ==
[2020-09-15] MEDS ORDERED: HYDROcodone/APAP 7.5-325MG 1 EACH TAB PO ONE (23:31)
[2020-09-15] MEDS ORDERED: ACETAMINOPHEN TAB 325 MG TAB PO STA (23:31)
[2020-09-15] MEDS ORDERED: SODIUM CHLORIDE 0.9% 1,000 ML IV STA (23:31)
--- NOTE | 2020-09-15 23:43 | ED ---
General Adult HPI - General Chief complaint: Fever Stated complaint: Post-op rt knee infection Time Seen by Provider: 09/15/20 23:23 Source: patient, family Mode of arrival: wheelchair Limitations: no limitations - History of Present Illness Initial comments: 65 year-old male patient who is post-op day #5 after right total knee arthroplasty, presents to the emergency department for evaluation of right knee swelling, pain, and redness. patient states that he has noticed increase in swelling and redness over the last 24 hours. States he has mildly increased pain to the knee. States he also developed a fever has been around 100F at home. He has been taking his home [place] as directed. Denies any nausea or vomiting. Denies cough, congestion, or shortness of breath. Denies any sore throat or nasal congestion. Denies any hematuria, dysuria, urinary frequency, urinary urgency. Patient denies any recent rash, chest pain, abdominal pain, diarrhea, constipation, back pain, numbness, tingling, dizziness, weakness, headache, visual changes, or any other complaints. - Related Data Home Medications Medication Instructions Recorded Confirmed Rivaroxaban [Xarelto] 20 mg PO HS 02/28/15 09/04/20 lisinopriL [Prinivil] 20 mg PO HS 05/11/15 09/04/20 Metoprolol Succinate [Toprol XL] 50 mg PO HS 02/09/16 09/04/20 Atorvastatin [Lipitor] 10 mg PO HS 06/06/19 09/04/20 Furosemide [Lasix] 20 mg PO MOTUWE 09/04/20 09/04/20 Previous Rx's Medication Instructions Recorded Dofetilide [Tikosyn] 125 mcg PO Q12HR #90 cap 05/11/15 Aspirin [Adult Low Dose Aspirin EC] 81 mg PO BID #60 tablet. 09/11/20 Docusate [Colace] 100 mg PO DAILY #30 capsule 09/11/20 HYDROcodone/APAP 7.5-325MG [[place] 1 - 2 each PO Q6HR PRN #56 tab 09/11/20 7.5-325] Allergies Allergy/AdvReac Type Severity Reaction Status Date / Time Penicillins Allergy Unknown Verified 09/15/20 23:16 Childhood Review of Systems ROS Statement: Those systems with pertinent positive or pertinent negative responses have been documented in the HPI. ROS Other: All systems not noted in ROS Statement are negative. Past Medical History Past Medical History: Atrial Fibrillation, Heart Failure, Hypertension, Sleep Apnea/CPAP/BIPAP Additional Past Medical History / Comment(s): cardiomyopathy, EF 55%, pulmonary HTN, lower leg edema (improved with lasix), KASSIE with bipap, previous ablations with most recent 08/2016, History of Any Multi-Drug Resistant Organisms: None Reported Past Surgical History: Heart Catheterization, Joint Replacement, Orthopedic Surgery, Tonsillectomy Additional Past Surgical History / Comment(s): EP STUDY, CARDIAC ABLATION x3. 03/09/15 several cardioversions, SEVERAL BILATERAL ANKLE SURGERIES, right hip replaced, colonoscopy; 2020 TRK arthroplasty Past Anesthesia/Blood Transfusion Reactions: No Reported Reaction Past Psychological History: No Psychological Hx Reported Smoking Status: Never smoker Past Alcohol Use History: Occasional Past Drug Use History: None Reported - Past Family History Mother Family Medical History: Cancer Additional Family Medical History / Comment(s): She had polio and loss the use of one arm, she had lymphoma and had a leg amputation. Father Family Medical History: Myocardial Infarction ([place]) Additional Family Medical History / Comment(s): Father of [place] at age 79yrs General Exam Limitations: no limitations General appearance: alert, in no apparent distress, other (physical well- developed, well-nourished adult male patient in no acute distress) Cardiovascular Exam: Present: regular rate, normal rhythm, normal heart sounds. Absent: systolic murmur, diastolic murmur, rubs, gallop, clicks GI/Abdominal exam: Present: soft, normal bowel sounds. Absent: distended, tenderness, guarding, rebound, rigid Extremities exam: Present: full ROM, normal capillary refill, other (there is significant swelling noted to the right lower extremity. There is erythemaand ecchymosis overlying the right knee extending down over the pretibial region. Skin is warm and dry. Cap refills less than 3 seconds. Pedal pulses 2+.). Absent: normal inspection, tenderness, pedal edema, joint swelling, calf ten derness Neurological exam: Present: alert, oriented X3, CN II-XII intact Psychiatric exam: Present: normal affect, normal mood Skin exam: Present: warm, dry, intact, normal color. Absent: rash Course Vital Signs 09/15/20 09/16/2009/16/21 23:10 00:00 01:07 Temperature 100 F H 98.9 F Pulse Rate 79 74 70 Respiratory 22 18 18 Rate Blood Pressure 139/82 114/66 102/66 O2 Sat by Pulse 98 97 97 Oximetry Medical Decision Making - Medical Decision Making 65-year-old male patient who is postop day #5 after right total knee arthroplasty with Dr. Malinda tyler presents to the emergency department today for evaluation of right leg swelling and fever. Physical examination did reveal significant soft tissue swelling over the right lower extremity, there is evidence for erythema extending from the knee down over the pretibial region. There is also extensive ecchymosis. Labs reviewed and did reveal normal white blood cell count at 8.9. Decreased hemoglobin at 12.8. He did have mildly elevated liver enzymes and elevated bilirubin but is complaining of no abdominal discomfort or GI symptoms. Ultrasound was obtained of the right lower extremity was negative for DVT. He will be admitted to the hospital for further evaluation by orthopedics in the morning. Dr. Cooper is accepting and has requested to hold antibiotics until he sees him in the morning. Labs will be repeated. Patient verbalizes understanding and agrees with this plan. Case discussed with my attending Dr. Newman. - Lab Data Result diagrams: 09/15/20 23:48 09/15/20 23:48 Lab Results 09/15/20 09/15/20 09/15/20 Range/Units 23:48 23:48 23:48 WBC 8.9 (3.8-10.6) k/uL RBC 4.26 L (4.30-5.90) m/uL Hgb 12.8 L (13.0-17.5) gm/dL Hct 38.5 L (39.0-53.0) % MCV 90.4 (80.0-100.0) fL MCH 30.1 (25.0-35.0) pg MCHC 33.3 (31.0-37.0) g/dL RDW 12.8 (11.5-15.5) % Plt Count 253 (150-450) k/uL MPV 7.0 Neutrophils % 75 % Lymphocytes % 13 % Monocytes % 8 % Eosinophils % 4 % Basophils % 0 % Neutrophils # 6.7 (1.3-7.7) k/uL Lymphocytes # 1.1 (1.0-4.8) k/uL Monocytes # 0.7 (0-1.0) k/uL Eosinophils # 0.3 (0-0.7) k/uL Basophils # 0.0 (0-0.2) k/uL PT (9.0-12.0) sec INR (<1.2) APTT (22.0-30.0) sec Sodium 136 L (137-145) mmol/L Potassium 3.7 (3.5-5.1) mmol/L Chloride 100 (98-107) mmol/L Carbon Dioxide 26 (22-30) mmol/L Anion Gap 10 mmol/L BUN 19 (9-20) mg/dL Creatinine 1.21 (0.66-1.25) mg/dL Est GFR (CKD-EPI)AfAm 71 (>60 ml/min/1.73 sqM) Est GFR (CKD-EPI)NonAf 62 (>60 ml/min/1.73 sqM) Glucose 120 H (74-99) mg/dL Plasma Lactic Acid [place] 1.0 (0.7-2.0) mmol/L Calcium 8.5 (8.4-10.2) mg/dL Total Bilirubin 2.5 H (0.2-1.3) mg/dL AST 81 H (17-59) U/L ALT 53 H (4-49) U/L Alkaline Phosphatase 107 (38-126) U/L Total Protein 6.2 L (6.3-8.2) g/dL Albumin 3.3 L (3.5-5.0) g/dL Urine Color Urine Appearance (Clear) Urine pH (5.0-8.0) Ur Specific [place] (1.001-1.035) Urine Protein (Negative) Urine Glucose (UA) (Negative) Urine Ketones (Negative) Urine Blood (Negative) Urine Nitrite (Negative) Urine Bilirubin (Negative) Urine Urobilinogen (<2.0) mg/dL Ur Leukocyte Esterase (Negative) Urine RBC (0-5) /hpf Urine WBC (0-5) /hpf Urine Mucus (None) /hpf 09/16/20 09/16/20 Range/Units 00:03 00:30 WBC (3.8-10.6) k/uL RBC (4.30-5.90) m/uL Hgb (13.0-17.5) gm/dL Hct (39.0-53.0) % MCV (80.0-100.0) fL MCH (25.0-35.0) pg MCHC (31.0-37.0) g/dL RDW (11.5-15.5) % Plt Count (150-450) k/uL MPV Neutrophils % % Lymphocytes % % Monocytes % % Eosinophils % % Basophils % % Neutrophils # (1.3-7.7) k/uL Lymphocytes # (1.0-4.8) k/uL Monocytes # (0-1.0) k/uL Eosinophils # (0-0.7) k/uL Basophils # (0-0.2) k/uL PT 13.1 H (9.0-12.0) sec INR 1.3 H (<1.2) APTT 33.7 H (22.0-30.0) sec Sodium (137-145) mmol/L Potassium (3.5-5.1) mmol/L Chloride (98-107) mmol/L Carbon Dioxide (22-30) mmol/L Anion Gap mmol/L BUN (9-20) mg/dL Creatinine (0.66-1.25) mg/dL Est GFR (CKD-EPI)AfAm (>60 ml/min/1.73 sqM) Est GFR (CKD-EPI)NonAf (>60 ml/min/1.73 sqM) Glucose (74-99) mg/dL Plasma Lactic Acid [place] (0.7-2.0) mmol/L Calcium (8.4-10.2) mg/dL Total Bilirubin (0.2-1.3) mg/dL AST (17-59) U/L ALT (4-49) U/L Alkaline Phosphatase (38-126) U/L Total Protein (6.3-8.2) g/dL Albumin (3.5-5.0) g/dL Urine Color Yellow Urine Appearance Clear (Clear) Urine pH 5.5 (5.0-8.0) Ur Specific [place] 1.028 (1.001-1.035) Urine Protein 1+ H (Negative) Urine Glucose (UA) Negative (Negative) Urine Ketones Negative (Negative) Urine Blood Moderate H (Negative) Urine Nitrite Negative (Negative) Urine Bilirubin 1+ H (Negative) Urine Urobilinogen 8.0 (<2.0) mg/dL Ur Leukocyte Esterase Negative (Negative) Urine RBC 6 H (0-5) /hpf Urine WBC 5 (0-5) /hpf Urine Mucus Rare H (None) /hpf - Radiology Data Radiology results: report reviewed Ultrasound of the right lower extremity was obtained. Report was reviewed in its entirety. Impression by Dr. Gamez shows no DVT right lower extremity deep venous system. Disposition Clinical Impression: Swelling of right knee joint, Fever Disposition: ADMITTED IP TO THIS [facility] Condition: Serious Referrals: Aldo Byrd DO [Primary Care Provider] - 1-2 days Decision to Admit Reason: Admit from EC Decision Date: 09/16/20 Decision Time: 01:16
[2020-09-15 23:56] LABS: Basophils % (A) 0 %; Eosinophils # (A) 0.3 k/uL (0-0.7); Eosinophils % (A) 4 %; HCT 38.5 % (39.0-53.0); HGB 12.8 gm/dL (13.0-17.5); Lymphocytes # (A) 1.1 k/uL (1.0-4.8); Lymphocytes % (A) 13 %; MCH 30.1 pg (25.0-35.0); MCHC 33.3 g/dL (31.0-37.0); MCV 90.4 fL (80.0-100.0); Monocytes # (A) 0.7 k/uL (0-1.0); Monocytes % (A) 8 %; Neutrophils # (A) 6.7 k/uL (1.3-7.7); Neutrophils % (A) 75 %; Platelet Count 253 k/uL (150-450); RBC 4.26 m/uL (4.30-5.90); RDW 12.8 % (11.5-15.5); WBC 8.9 k/uL (3.8-10.6)
[2020-09-16 00:05] LABS: Albumin 3.3 g/dL (3.5-5.0); Calcium 8.5 mg/dL (8.4-10.2); Potassium 3.7 mmol/L (3.5-5.1); Total Bilirubin 2.5 mg/dL (0.2-1.3); Total Protein 6.2 g/dL (6.3-8.2)
[2020-09-16 00:22] LABS: Appearance,Urine Clear (Clear); Bilirubin,Urine 1+ (Negative); Blood,Urine Moderate (Negative); Color,Urine Yellow; Glucose,Urine (UA) Negative (Negative); Ketones,Urine Negative (Negative); Leukocyte Esterase,Urine Negative (Negative); Mucus,Urine Rare /hpf; Nitrite,Urine Negative (Negative); PH, Urine 5.5 (5.0-8.0); Protein,Urine 1+ (Negative); RBC,Urine 6 /hpf (0-5); Specific Gravity,Urine 1.028 (1.001-1.035); WBC,Urine 5 /hpf (0-5)
--- NOTE | 2020-09-16 00:50 | US ---
EXAM: US Duplex Right Lower Extremity Veins CLINICAL HISTORY: ITS.REASON US Reason: Left swelling, pain s/p knee replacement TECHNIQUE: Real-time duplex ultrasound scan of the right lower extremity veins integrating B-mode two-dimensional vascular structure, Doppler spectral analysis, color flow Doppler imaging and compression. COMPARISON: 06/17/2019. FINDINGS: Deep veins: Imaging of the right lower extremity deep venous system including the right common femoral vein, right superficial femoral vein, the right popliteal vein, the proximal calf veins reveals no deep venous thrombosis per Superficial veins: Unremarkable. No thrombus in the visualized great saphenous vein. Soft tissues: The soft tissues are grossly unremarkable. No popliteal cyst. IMPRESSION: No deep venous thrombosis right lower extremity deep venous system.
[2020-09-16 00:51] LABS: INR 1.3 (<1.2); Partial Thromboplastin Time 33.7 sec (22.0-30.0); Prothrombin Time 13.1 sec (9.0-12.0)
[2020-09-16] MEDS ORDERED: ACETAMINOPHEN TAB 325 MG TAB PO PRN (01:11)
[2020-09-16] MEDS ORDERED: ONDANSETRON 4 MG/2 ML VIAL IVP PRN (01:11)
[2020-09-16] MEDS ORDERED: NALOXONE 0.4 MG/ML 1 ML VIAL IV PRN (01:11)
[2020-09-16 07:48] LABS: Basophils # (A) 0.1 k/uL (0-0.2); Basophils % (A) 1 %; Eosinophils # (A) 0.3 k/uL (0-0.7); Eosinophils % (A) 3 %; HCT 35.9 % (39.0-53.0); HGB 12.6 gm/dL (13.0-17.5); Lymphocytes # (A) 0.8 k/uL (1.0-4.8); Lymphocytes % (A) 9 %; MCH 31.6 pg (25.0-35.0); MCV 90.1 fL (80.0-100.0); Monocytes # (A) 0.6 k/uL (0-1.0); Monocytes % (A) 7 %; Neutrophils # (A) 6.9 k/uL (1.3-7.7); Neutrophils % (A) 79 %; Platelet Count 215 k/uL (150-450); RBC 3.98 m/uL (4.30-5.90); RDW 12.7 % (11.5-15.5); WBC 8.8 k/uL (3.8-10.6)
[2020-09-16 07:56] LABS: Albumin 3.1 g/dL (3.5-5.0); Calcium 8.3 mg/dL (8.4-10.2); Potassium 3.8 mmol/L (3.5-5.1); Total Bilirubin 2.2 mg/dL (0.2-1.3); Total Protein 5.8 g/dL (6.3-8.2)
[2020-09-16] MEDS: HYDROcodone/APAP 7.5-325MG 1 EACH TAB PO PRN ×3 (09:10→23:19)
[2020-09-16] MEDS ORDERED: VANCOMYCIN IV PER PHARMACY 1 EACH MISC MISCELLANE PRN (11:04)
[2020-09-16] MEDS: DOFETILIDE 125 MCG CAP PO SCH ×2 (11:15→22:22)
--- NOTE | 2020-09-16 11:19 | P.HPOR ---
History of Present Illness H&P Date: 09/16/20 Chief Complaint: R knee pain and swelling 65 yo male presented to ED with c/o increasing pain and swelling of his RLE and right knee s/p TKA. He underwent TKA on 09/10/[address] Huntley. Did well PO and was sent home. The last two days he states he has had more swelling and pain and reddness around the knee. No drainage from the incision and he still has the same post op dressing in place. He states pain with motion of the knee and swelling in the calf and knee. Denies any numbness/tingling. States subjective fevers of 100 F overnight. Denies any n/v/sob/cp at this time. Review of Systems 14 points review of systems completed and as stated in HPI, all other systems reviewed are negative. Past Medical History Past Medical History: Atrial Fibrillation, Heart Failure, Hypertension, Sleep Apnea/CPAP/BIPAP Additional Past Medical History / Comment(s): cardiomyopathy, EF 55%, pulmonary HTN, lower leg edema (improved with lasix), KASSIE with bipap, previous ablations with most recent 08/2016, History of Any Multi-Drug Resistant Organisms: None Reported Past Surgical History: Heart Catheterization, Joint Replacement, Orthopedic Surgery, Tonsillectomy Additional Past Surgical History / Comment(s): EP STUDY, CARDIAC ABLATION x3. 03/09/15 several cardioversions, SEVERAL BILATERAL ANKLE SURGERIES, right hip replaced, colonoscopy; 2020 TRK arthroplasty Past Anesthesia/Blood Transfusion Reactions: No Reported Reaction Past Psychological History: No Psychological Hx Reported Additional Psychological History / Comment(s): Pt resides with his spouse. He is independent. He uses no assistive device. He drives. JUST RECENTLY RETIRED FROM [employer]. NO SERVICE IN HIS LIFETIME. Smoking Status: Never smoker Past Alcohol Use History: Occasional Additional Past Alcohol Use History / Comment(s): Pt states he is now not drinking any alcohol. Past Drug Use History: None Reported - Past Family History Mother Family Medical History: Cancer Additional Family Medical History / Comment(s): She had polio and loss the use of one arm, she had lymphoma and had a leg amputation. Father Family Medical History: Myocardial Infarction ([place]) Additional Family Medical History / Comment(s): Father of [place] at age 79yrs Medications and Allergies Home Medications Medication Instructions Recorded Confirmed Type Rivaroxaban [Xarelto] 20 mg PO HS 02/28/15 09/16/20 History lisinopriL [Prinivil] 20 mg PO HS 05/11/15 09/16/20 History Metoprolol Succinate [Toprol XL] 50 mg PO HS 02/09/16 09/16/20 History Atorvastatin [Lipitor] 10 mg PO HS 06/06/19 09/16/20 History Aspirin [Adult Low Dose Aspirin EC] 81 mg PO BID #60 tablet. 09/11/20 09/16/20 Rx Dofetilide [Tikosyn] 125 mcg PO BID 09/16/20 09/16/20 History HYDROcodone/APAP 7.5-325MG [[place] 1 - 2 tab PO Q6H PRN 09/16/20 09/16/20 History 7.5-325] Allergies Allergy/AdvReac Type Severity Reaction Status Date / Time Penicillins Allergy Unknown Verified 09/16/20 08:25 Childhood Physical Examination Osteopathic Statement: *. No significant issues noted on an osteopathic structural exam other than those noted in the History and Physical/Consult. Incision is healing well. There is no purulence there is no drainage. The patient has 3+ pitting edema of his lower extremity on the right. It is normal on the left. He has ecchymosis and bruising as well as edema as well as erythema throughout the lower right extremity from the knee down to the ankle. There is bruising around the upper thigh where the tourniquet was placed. There is effusion palpated as well. Dorsalis pedis was posterior tibial pulses are palpable Compartments are compressible although edematous. There is no evidence of compartment syndrome. Sensation is intact to light touch in the L2 S1 nerve distribution - Knee bilateral Appearance: ecchymosis (Right knee), effusion (Right knee), previous incision (Right knee) Effusion grade: grade 2 Previous incision location: Anterior right knee incision healing well no drainage Tenderness with palpation: anterior, posterior, medial, lateral, peripatellar, quad tendon, patella tendon, pes anserinus Pain: with flexion, with extension, throughout ROM Gait: limping ROM: extension: 0 degrees ROM: flexion: 30 degrees Crepitus with motion: No Strength: extension: 5/5 Strength: flexion: 5/5 Patella exam: normal Results XR of R knee pending. Venous US of RLE neg for DVT at this time. - Labs Labs: Abnormal Lab Results - Last 24 Hours (Table) 09/15/20 09/15/20 09/16/20 Range/Units 23:48 23:48 00:03 RBC 4.26 L (4.30-5.90) m/uL Hgb 12.8 L (13.0-17.5) gm/dL Hct 38.5 L (39.0-53.0) % Lymphocytes # (1.0-4.8) k/uL PT (9.0-12.0) sec INR (<1.2) APTT (22.0-30.0) sec Sodium 136 L (137-145) mmol/L Glucose 120 H (74-99) mg/dL Calcium (8.4-10.2) mg/dL Total Bilirubin 2.5 H (0.2-1.3) mg/dL AST 81 H (17-59) U/L ALT 53 H (4-49) U/L Total Protein 6.2 L (6.3-8.2) g/dL Albumin 3.3 L (3.5-5.0) g/dL Urine Protein 1+ H (Negative) Urine Blood Moderate H (Negative) Urine Bilirubin 1+ H (Negative) Urine RBC 6 H (0-5) /hpf Urine Mucus Rare H (None) /hpf 09/16/20 09/16/20 09/16/20 Range/Units 00:30 07:06 07:06 RBC 3.98 L (4.30-5.90) m/uL Hgb 12.6 L (13.0-17.5) gm/dL Hct 35.9 L (39.0-53.0) % Lymphocytes # 0.8 L (1.0-4.8) k/uL PT 13.1 H (9.0-12.0) sec INR 1.3 H (<1.2) APTT 33.7 H (22.0-30.0) sec Sodium 135 L (137-145) mmol/L Glucose (74-99) mg/dL Calcium 8.3 L (8.4-10.2) mg/dL Total Bilirubin 2.2 H (0.2-1.3) mg/dL AST 64 H (17-59) U/L ALT (4-49) U/L Total Protein 5.8 L (6.3-8.2) g/dL Albumin 3.1 L (3.5-5.0) g/dL Urine Protein (Negative) Urine Blood (Negative) Urine Bilirubin (Negative) Urine RBC (0-5) /hpf Urine Mucus (None) /hpf H & H 09/15/20 09/16/20 Range/Units 23:48 07:06 Hgb 12.8 L 12.6 L (13.0-17.5) gm/dL Hct 38.5 L 35.9 L (39.0-53.0) % Coagulation 09/16/20 Range/Units 00:30 INR 1.3 H (<1.2) Result Diagrams: 09/16/20 07:06 09/16/20 07:06 Assessment and Plan Assessment: 65-year-old male postop day 5 right total knee replacement with increasing pain erythema or ecchymosis and edema Plan: -Appreciate medicine management. -Pain control: Continue postoperative pain management -Aggressive ambulation protocol. OOB with all meals. OOB or in chair 4-5x daily. -PT/OT -TEDs, SCDs, mechanical ppx. OK for heparin today. Early ambulation is best. -GI ppx. -X-rays of right knee to be obtained - Continue aspirin 81 -Add vancomycin pharmacy dosing. Patient is ALLERGIC to penicillins from childhood with an unknown reaction so will not add Unasyn at this time -Trend labs. Obtain sed rate and CRP -Dispo: Pending I spoke over the phone with Dr. Huntley regarding patient's condition at this time we will defer aspiration as the patient is only 5 days out. He is very bruised and very erythematous and very edematous and this is likely secondary to the nature of the surgery. We will attempt to mitigate this with pain medication as well as elevation and ice around the knee. We will trend his labs at this time we will start him on vancomycin for prophylactic treatment. Dr. Huntley we will reevaluate him in the morning.
--- NOTE | 2020-09-16 12:02 | XR ---
Right knee HISTORY: Postop knee replacement 3 views of the right knee, correlation 09/10/2020 Patient is status post right knee arthroplasty. There is anatomic alignment. Soft tissue swelling is present. There is been some resorption of the previously identified lucency. IMPRESSION: Postop changes, soft tissue swelling.
[2020-09-16] MEDS: VANCOMYCIN 2,000 MG in SODIUM CHLORIDE 0.9% 500 ML 500 ML IVPB SCH ×2 (12:58→23:16)
--- NOTE | 2020-09-16 13:36 | P.CONS ---
History of Present Illness - Reason for Consult Cellulitis and infection of the surgical site area. - History of Present Illness Patient is pleasant 65-year-old male came in the with increasing pain in the r ight leg 2 days after his discharge from the hospital patient was discharged on after he he had a right knee arthroplasty. Patient pain is worse and started having increasing redness and low-grade fevers because of which patient came to the hospital patient does have significant redness in the surgical site area extending from the knee, suture line up till mid leg on the right side. Patient was started on vancomycin. Orthopedic surgery wanted to start him on Unasyn as well although patient is ALLERGIC to penicillin. Review of Systems REVIEW OF SYSTEMS: CONSTITUTIONAL: No fever, no malaise, no fatigue. HEENT: No recent visual problems or hearing problems. Denied any sore throat. CARDIOVASCULAR: No chest pain, orthopnea, PND, no palpitations, no syncope. PULMONARY: No shortness of breath, no cough, no hemoptysis. GASTROINTESTINAL: No diarrhea, no nausea, no vomiting, no abdominal pain. NEUROLOGICAL: No headaches, no weakness, no numbness. HEMATOLOGICAL: Denies any bleeding or petechiae. GENITOURINARY: Denies any burning micturition, frequency, or urgency. MUSCULOSKELETAL/RHEUMATOLOGICAL: Mentioned in HPI ENDOCRINE: Denies any polyuria or polydipsia. The rest of the 14-point review of systems is negative. Past Medical History Past Medical History: Atrial Fibrillation, Heart Failure, Hypertension, Sleep Apnea/CPAP/BIPAP Additional Past Medical History / Comment(s): cardiomyopathy, EF 55%, pulmonary HTN, lower leg edema (improved with lasix), KASSIE with bipap, previous ablations with most recent 08/2016, History of Any Multi-Drug Resistant Organisms: None Reported Past Surgical History: Heart Catheterization, Joint Replacement, Orthopedic Surgery, Tonsillectomy Additional Past Surgical History / Comment(s): EP STUDY, CARDIAC ABLATION x3. 7 several cardioversions, SEVERAL BILATERAL ANKLE SURGERIES, right hip replaced, colonoscopy; 2020 TRK arthroplasty Past Anesthesia/Blood Transfusion Reactions: No Reported Reaction Past Psychological History: No Psychological Hx Reported Additional Psychological History / Comment(s): Pt resides with his spouse. He is independent. He uses no assistive device. He drives. JUST RECENTLY RETIRED FROM [employer]. NO SERVICE IN HIS LIFETIME. Smoking Status: Never smoker Past Alcohol Use History: Occasional Additional Past Alcohol Use History / Comment(s): Pt states he is now not drinking any alcohol. Past Drug Use History: None Reported - Past Family History Mother Family Medical History: Cancer Additional Family Medical History / Comment(s): She had polio and loss the use of one arm, she had lymphoma and had a leg amputation. Father Family Medical History: Myocardial Infarction ([place]) Additional Family Medical History / Comment(s): Father of [place] at age 79yrs Medications and Allergies Home Medications Medication Instructions Recorded Confirmed Type Rivaroxaban [Xarelto] 20 mg PO HS 02/28/15 09/16/20 History lisinopriL [Prinivil] 20 mg PO HS 05/11/15 09/16/20 History Metoprolol Succinate [Toprol XL] 50 mg PO HS 02/09/16 09/16/20 History Atorvastatin [Lipitor] 10 mg PO HS 06/06/19 09/16/20 History Aspirin [Adult Low Dose Aspirin EC] 81 mg PO BID #60 tablet. 09/11/20 09/16/20 Rx Dofetilide [Tikosyn] 125 mcg PO BID 09/16/20 09/16/20 History HYDROcodone/APAP 7.5-325MG [[place] 1 - 2 tab PO Q6H PRN 09/16/20 09/16/20 History 7.5-325] Allergies Allergy/AdvReac Type Severity Reaction Status Date / Time Penicillins Allergy Unknown Verified 09/16/20 08:25 Childhood Physical Exam Vitals: Vital Signs Temp Pulse Pulse Resp BP BP Pulse Ox 09/16/20 08:00 98.2 F 74 18 131/82 98 09/16/20 04:05 98.2 F 68 16 121/72 100 09/16/20 03:35 98.5 F 69 20 118/72 96 09/16/20 02:04 67 20 114/67 97 09/16/20 01:07 70 18 102/66 97 09/16/20 00:00 98.9 F 74 18 114/66 97 09/15/20 23:10 100 F H 79 22 139/82 98 Intake and Output 09/15/20 09/16/20 09/16/20 22:59 06:59 14:59 Other: # Voids 1 Weight 131.542 kg PHYSICAL EXAMINATION: GENERAL: The patient is alert and oriented x3, not in any acute distress. Obese HEENT: Pupils are round and equally reacting to light. EOMI. No scleral icterus. No conjunctival pallor. Normocephalic, atraumatic. No pharyngeal erythema. No thyromegaly. CARDIOVASCULAR: S1 and S2 present. No murmurs, rubs, or gallops. PULMONARY: Chest is clear to auscultation, no wheezing or crackles. ABDOMEN: Soft, nontender, nondistended, normoactive bowel sounds. No palpable organomegaly. MUSCULOSKELETAL: No joint swelling or deformity. EXTREMITIES: No cyanosis, clubbing, or pedal edema. Right knee Suture site appeared to be clean but the surrounding areas appear to be cellulitic extension cellulitis as mentioned in HPI NEUROLOGICAL: Gross neurological examination did not reveal any focal deficits. SKIN: Cellulitis as mentioned above Results CBC & Chem 7: 09/16/20 07:06 09/16/20 07:06 Labs: Abnormal Lab Results - Last 24 Hours (Table) 09/15/20 09/15/20 09/16/20 Range/Units 23:48 23:48 00:03 RBC 4.26 L (4.30-5.90) m/uL Hgb 12.8 L (13.0-17.5) gm/dL Hct 38.5 L (39.0-53.0) % Lymphocytes # (1.0-4.8) k/uL ESR (0-15) mm/hr PT (9.0-12.0) sec INR (<1.2) APTT (22.0-30.0) sec Sodium 136 L (137-145) mmol/L Glucose 120 H (74-99) mg/dL Calcium (8.4-10.2) mg/dL Total Bilirubin 2.5 H (0.2-1.3) mg/dL AST 81 H (17-59) U/L ALT 53 H (4-49) U/L C-Reactive Protein (<10.0) mg/L Total Protein 6.2 L (6.3-8.2) g/dL Albumin 3.3 L (3.5-5.0) g/dL Urine Protein 1+ H (Negative) Urine Blood Moderate H (Negative) Urine Bilirubin 1+ H (Negative) Urine RBC 6 H (0-5) /hpf Urine Mucus Rare H (None) /hpf 09/16/20 09/16/20 09/16/20 Range/Units 00:30 07:06 07:06 RBC 3.98 L (4.30-5.90) m/uL Hgb 12.6 L (13.0-17.5) gm/dL Hct 35.9 L (39.0-53.0) % Lymphocytes # 0.8 L (1.0-4.8) k/uL ESR (0-15) mm/hr PT 13.1 H (9.0-12.0) sec INR 1.3 H (<1.2) APTT 33.7 H (22.0-30.0) sec Sodium 135 L (137-145) mmol/L Glucose (74-99) mg/dL Calcium 8.3 L (8.4-10.2) mg/dL Total Bilirubin 2.2 H (0.2-1.3) mg/dL AST 64 H (17-59) U/L ALT (4-49) U/L C-Reactive Protein (<10.0) mg/L Total Protein 5.8 L (6.3-8.2) g/dL Albumin 3.1 L (3.5-5.0) g/dL Urine Protein (Negative) Urine Blood (Negative) Urine Bilirubin (Negative) Urine RBC (0-5) /hpf Urine Mucus (None) /hpf 09/16/20 09/16/20 Range/Units 07:06 07:06 RBC (4.30-5.90) m/uL Hgb (13.0-17.5) gm/dL Hct (39.0-53.0) % Lymphocytes # (1.0-4.8) k/uL ESR 48 H (0-15) mm/hr PT (9.0-12.0) sec INR (<1.2) APTT (22.0-30.0) sec Sodium (137-145) mmol/L Glucose (74-99) mg/dL Calcium (8.4-10.2) mg/dL Total Bilirubin (0.2-1.3) mg/dL AST (17-59) U/L ALT (4-49) U/L C-Reactive Protein 190.2 H (<10.0) mg/L Total Protein (6.3-8.2) g/dL Albumin (3.5-5.0) g/dL Urine Protein (Negative) Urine Blood (Negative) Urine Bilirubin (Negative) Urine RBC (0-5) /hpf Urine Mucus (None) /hpf Assessment and Plan Plan: -Cellulitis and infection of the surgical site in the right knee: Patient was started on vancomycin and await blood cultures were obtained. The week surgery evaluated the patient. -Hypertension patient will resume the lisinopril x-ray - atrial fibrillation patient is presently rate controlled patient appears to have proximal atrial fibrillation patient is on anticoagulation with Xarelto which is being held as patient may need aspiration or incision of and drainage of the right knee -Hypertension -Obesity, sleep apnea and uses CPAP machine at home. DVT prophylaxis: As per primary service
--- NOTE | 2020-09-16 17:41 | US ---
EXAMINATION TYPE: US venous doppler duplex LE RT DATE OF EXAM: 09/16/2020 5:04 PM COMPARISON: US done earlier same day, Dr wanted repeated due to increased swelling and bruising. CLINICAL HISTORY: increased swelling and bruising hot to touch. SIDE PERFORMED: Right TECHNIQUE: The lower extremity deep venous system is examined utilizing real time linear array sonog briana with graded compression, doppler sonography and color-flow sonography. VESSELS IMAGED: Common Femoral Vein Deep Femoral Vein Greater Saphenous Vein * Femoral Vein Popliteal Vein Small Saphenous Vein * Proximal Calf Veins (* superficial vessels) Right Leg: Negative for DVT IMPRESSION: No sign of deep vein thrombosis in the right leg.
[2020-09-16] MEDS: HEPARIN SODIUM,PORCINE 5,000 UNIT/ML 1 ML VIAL SQ SCH ×2 (19:19→23:16)
[2020-09-16] MEDS ORDERED: ASPIRIN 81 MG PO SCH (21:00)
[2020-09-16] MEDS ORDERED: METOPROLOL SUCCINATE (ER) 50 MG TAB.ER.24H PO SCH (21:00)
[2020-09-16] MEDS ORDERED: ATORVASTATIN 10 MG TAB PO SCH (21:00)
[2020-09-16] MEDS ORDERED: lisinopriL 20 MG TAB PO SCH (21:00)
--- NOTE | 2020-09-16 23:53 | CONS ---
CONSULTATION DATE OF SERVICE: 09/16/2020. REASON FOR CONSULTATION: Right lower extremity cellulitis. HISTORY OF PRESENT ILLNESS: The patient is a 65-year-old male who is status post right knee arthroplasty done on September 10, 2020. The patient was subsequently discharged home in a stable condition and the patient did well until Thursday morning when the patient started having more swelling and discomfort to the right lower extremity and especially in the knee area. The patient describes the discomfort to be more of a pain and stretching like, intensity is about 8/10 with no radiation with associated swelling and redness in the right leg. The patient has been not feeling well and did have some chills. With these symptoms, the patient presented to [facility] ER. On arrival to the ER, the patient did have a low-grade fever of 100 degrees Fahrenheit. The patient did have a normal white count with no left shift. He did have elevated sedimentation rate of 48 and CRP 119. Urine is negative. Oliva PCR was negative. Liver enzymes mildly elevated. The patient did have x-rays of the knee which did show some soft tissue swelling. Lower extremity Doppler was negative for DVT. The patient was started on vancomycin, Pharmacy to dose, admitted to the hospital. Infectious Disease was consulted for further management off antibiotic therapy. REVIEW OF SYSTEMS: Positive points have been mentioned in HPI. Rest of systems are negative. PAST MEDICAL HISTORY: Atrial fibrillation, heart failure, hypertension, sleep apnea, cardiomyopathy, osteoarthritis. PAST SURGICAL HISTORY: Heart catheterization, right knee replacement, tonsillectomy, cardiac ablation, colonoscopy, and right hip replacement. SOCIAL HISTORY: No history of smoking. Denies drinking or drug use. FAMILY HISTORY: Mother history of cancer/lymphoma. Father history of OR. ALLERGIES: TO PENICILLIN WITH A RASH. NO HISTORY OF ANAPHYLAXIS. MEDICATIONS: Include the patient is currently on vancomycin, pharmacy to dose and Zofran, Narcan, Toprol XL. Zestril, heparin, Lipitor, [place] and Tylenol. PHYSICAL EXAMINATION: Blood pressure 115/68 with a pulse of 77. Temperature 98.9. He is 98% on room air. General description is an elderly male lying in bed in no distress. No tachypnea or accessory muscles of respiration use. HEENT: Examination shows no pallor or scleral icterus. Oral mucous membranes dry. No pharyngeal erythema or thrush. NECK: Trachea central. No thyromegaly. Lungs: Unlabored breathing, clear to auscultation anteriorly. No wheeze or crackles. Heart S1, S2. Regular rate and rhythm. ABDOMEN: Soft, no tenderness. No guarding. No rigidity. EXTREMITIES: Right leg with diffuse swelling and redness. Warm to touch. No blister or any drainage. NEUROLOGICAL: Patient is awake, alert, oriented times three. Mood and affect normal. LABS: Hemoglobin is 12.8, white count 8.9. BUN of 19, creatinine 1.02. DIAGNOSTIC IMPRESSION/PLAN: 1. Patient with acute right lower extremity cellulitis in this patient who did have a recent right knee replacement with concern for some persistent cellulitis and will need more aggressive treatment with underlying prosthetic knee and likely from a gram-positive skin lindsay. 2. Patient who does have PENICILLIN ALLERGY that will limit the number of antibiotics safe to use. PLAN: 1. Vancomycin pharmacy to dose target of 15 while monitoring his kidney function closely. 2. Héctor the area of the redness. 3. We will follow on his clinical condition and culture to further adjust medication if needed. Thank you for this consultation. Will follow this patient along with you. MMODL / IJN: [id number] /
[2020-09-17 02:34] VITALS: RESP 18
[2020-09-17] MEDS: HYDROcodone/APAP 7.5-325MG 1 EACH TAB PO PRN ×2 (05:59→11:20)
[2020-09-17] MEDS: HEPARIN SODIUM,PORCINE 5,000 UNIT/ML 1 ML VIAL SQ SCH (08:41)
[2020-09-17] MEDS: DOFETILIDE 125 MCG CAP PO SCH (08:41)
--- NOTE | 2020-09-17 10:06 | CT ---
EXAMINATION TYPE: CT lower leg RT wo con DATE OF EXAM: 09/17/2020 COMPARISON: Right knee x-ray from yesterday and older studies. HISTORY: edema,bruising mid thigh down post knee replacement surgery CT DLP: 1267.9 mGycm Automated exposure control for dose reduction was used. FINDINGS: Metallic hardware from total right knee arthroplasty redemonstrated. Position stable and satisfactory . No suspicious surrounding lucency. There is moderate to large-sized suprapatellar joint effusion is present. No fracture. Moderate diffuse subcutaneous edema extending anteriorly along with laterally and medially with asymm etric right lower extremity swelling. IMPRESSION: As above.
--- NOTE | 2020-09-17 10:51 | P.PN ---
Progress Note - Text Progress Note Date: 09/17/20 Patient seen and bed. He states that the swelling in his leg is improved. He has not walking with his walker. He states that his postoperative knee pain is tolerable. Incision stable. There may be some mild erythema medially. There is diffuse swelling about the extremity and ecchymosis. Homans and Kojo are both negative. He has good sensation and perfusion distally. Computed tomography scanrevealed components to be well positioned, an intra- articular effusion and no other significant abnormality Impression: Improved right lower extremity swelling, ecchymosis and erythema Status post right total knee arthroplasty Plan: I will discharge to home today after his IV vancomycin dose
--- NOTE | 2020-09-17 11:00 | P.DS ---
Providers Date of admission: 09/16/20 01:21 Expected date of discharge: 09/17/20 Attending physician: Vincenzo Cooper DO Consults: 09/16/20 09:03 Consult Physician Routine Consulting Provider: Aldo Byrd Consult Reason/Comments: patient's primary Do you want consulting provider notified?: Yes 09/16/20 16:25 Consult Physician Routine Consulting Provider: Pablo Gtz Consult Reason/Comments: possible post op infection post total right knee Do you want consulting provider notified?: Yes Primary care physician: Aldo Byrd Hospital Course: Patient was admitted with ecchymosis/cellulitis right lower extremity status post right total knee arthroplasty. Ultrasound was negative for DVT. He had a normal white count. He remained afebrile throughout his hospital course. Patient Condition at Discharge: Good Plan - Discharge Summary Discharge Rx Participant: No New Discharge Prescriptions: New Cephalexin [Keflex] 500 mg PO Q6HR 1 Days #40 cap No Action Rivaroxaban [Xarelto] 20 mg PO HS lisinopriL [Prinivil] 20 mg PO HS Metoprolol Succinate [Toprol XL] 50 mg PO HS Atorvastatin [Lipitor] 10 mg PO HS Aspirin [Adult Low Dose Aspirin EC] 81 mg PO BID #60 tablet. HYDROcodone/APAP 7.5-325MG [[place] 7.5-325] 1 - 2 tab PO Q6H PRN PRN Reason: Pain Dofetilide [Tikosyn] 125 mcg PO BID Discharge Medication List Rivaroxaban [Xarelto] 20 mg PO HS 02/28/15 [History] lisinopriL [Prinivil] 20 mg PO HS 05/11/15 [History] Metoprolol Succinate [Toprol XL] 50 mg PO HS 02/09/16 [History] Atorvastatin [Lipitor] 10 mg PO HS 06/06/19 [History] Aspirin [Adult Low Dose Aspirin EC] 81 mg PO BID #60 tablet. 09/11/20 [Rx] Dofetilide [Tikosyn] 125 mcg PO BID 09/16/20 [History] HYDROcodone/APAP 7.5-325MG [[place] 7.5-325] 1 - 2 tab PO Q6H PRN 09/16/20 [History] Cephalexin [Keflex] 500 mg PO Q6HR 1 Days #40 cap 09/17/20 [Rx] Follow up Appointment(s)/Referral(s): Aldo Byrd DO [Primary Care Provider] - 1-2 days Gurdeep Castaneda PAC [[employer]] - 1 Week Activity/Diet/Wound Care/Special Instructions: Resume total knee arthroplasty postoperative orders Resume aspirin twice daily Take prescription for Keflex as directed Contact office of any worsening of symptoms or questions/issues arise Discharge Disposition: HOME WITH HOME HEALTH SERVICES
[2020-09-17] MEDS: VANCOMYCIN 2,000 MG in SODIUM CHLORIDE 0.9% 500 ML 500 ML IVPB SCH (11:20)
--- NOTE | 2020-09-17 12:38 | P.PN ---
Subjective Progress Note Date: 09/17/20 This is a 65-year-old gentleman status post right knee arthroplasty of 09/10/2020 admitted with acute right lower extremity cellulitis. Venous Doppler reported negative for DVT. Lower extremity CT reporting moderate diffuse subcutaneous edema extending anterior leg along the lateral and medial [place] with asymmetric right lower extremity swelling, no suspicious surrounding lucency, moderate to large sized suprapatellar joint effusion. Remains afebrile, normal WBC. Preliminary blood cultures reporting no growth at 24 hours. Hemoglobin 12.6, platelets 2:15. Minimal elevation of T bili, AST, improved. CRP elevated at 190.2. Coronavirius not detected. Evaluated by infectious disease, maintained on vancomycin. Renal function improving, Creatinine 1.02. He reports swelling improved today and more comfortable. Objective - Vital Signs Vital signs: Vital Signs Temp 98.3 F 09/17/20 08:00 Pulse 70 09/17/20 08:00 Resp 18 09/17/20 08:00 BP 136/79 09/17/20 08:00 Pulse Ox 96 09/17/20 08:00 Intake & Output 09/16/20 09/17/20 09/17/20 18:59 06:59 18:59 Intake Total 500 Balance 500 Intake: Intake, IV Titration 500 Amount Vancomycin 2,000 mg In 500 Sodium Chloride 0.9% 500 ml 500 ml @ 167 mls/hr IVPB Q12H [facility] Rx#: [id number] Other: # Voids 3 1 - Exam PHYSICAL EXAM: VITAL SIGNS: As above GENERAL: Sitting up in bed, no acute distress HEENT: Conjunctivae normal. eyes normal. Oral mucosa moist NECK: No JVD. No thyroid enlargement. No LNs CARDIOVASCULAR: S1, S2 regular. No murmur RESPIRATION: Breath sounds diminished in the bases. No rhonchi or crackles. No bronchial breathing. ABDOMEN: Soft, nontender . No guarding. no masses palpable. No ascites, No hepatosplenomegaly.Bowel sounds heard. LEGS: Right leg redness, edema, warm, dry-no drainage, medial and lower extremity bruising, possible hematoma, Dressing clean dry and intact. PSYCHIATRY: Alert and oriented X3, mood and affect normal. NERVOUS SYSTEM: Cranial N 2-12 grossly normal. Moves all 4 limbs. No focal deficits. Strength and sensation grossly intact.. Skin: Warm and dry, right leg cellulitis as mentioned above - Labs CBC & Chem 7: 09/16/20 07:06 09/16/20 07:06 Labs: Abnormal Lab Results - Last 24 Hours (Table) 09/16/20 09/16/20 Range/Units 07:06 07:06 ESR 48 H (0-15) mm/hr C-Reactive Protein 190.2 H (<10.0) mg/L Microbiology - Last 24 Hours (Table) 09/15/20 23:48 Blood Culture - Preliminary Blood No Growth after 24 hours 09/15/20 23:48 Blood Culture - Preliminary Blood No Growth after 24 hours Assessment and Plan Assessment: Acute right lower extremity cellulitis postoperative TKA 09/10/2020, blood cultures pending Hypertension Chronic paroxysmal atrial fibrillation Obesity, BMI 36.2 Sleep apnea, uses CPAP at home Plan: Continue current medication regime ,monitoring and symptomatic treatment. Antibiotics as per infectious disease. Close monitoring of renal function as patient on vancomycin .Blood cultures in progress, currently reporting no growth. The impression and plan of care has been dictated as directed. : I performed a history and examination of this patient, discussed the same with the dictator. I agree with the dictator's note ,documented as a scribe. Any additional findings or plans will be noted.
[2020-09-17 14:30] VITALS: BP 100/66; PULSE 73; TEMP 98.4
[2020-09-18] MEDS ORDERED: VANCOMYCIN TROUGH DUE 1 EACH MISC MISCELLANE ONE (11:00)
== END 2020-09-17 15:35 | disposition home health service (06) ==
LOC: EC 23:10 → 6NMEDSUR 09-16 01:21
PROVIDERS: ADMIT Orthopaedic Surgery; ATTEND Orthopaedic Surgery
DX: L03.115 Cellulitis of right lower limb (principal); G89.18 Other acute postprocedural pain; M25.461 Effusion, right knee; Z96.651 Presence of right artificial knee joint; I11.0 Hypertensive heart disease with heart failure; I50.9 Heart failure, unspecified; I48.0 Paroxysmal atrial fibrillation; I27.20 Pulmonary hypertension, unspecified; I42.9 Cardiomyopathy, unspecified; G47.33 Obstructive sleep apnea (adult) (pediatric); Z99.89 Dependence on other enabling machines and devices; R74.8 Abnormal levels of other serum enzymes; E66.9 Obesity, unspecified; Z68.36 Body mass index [BMI] 36.0-36.9, adult; R70.0 Elevated erythrocyte sedimentation rate; M19.90 Unspecified osteoarthritis, unspecified site; Z79.01 Long term (current) use of anticoagulants; Z79.82 Long term (current) use of aspirin; Z79.891 Long term (current) use of opiate analgesic; Z79.899 Other long term (current) drug therapy; Z88.0 Allergy status to penicillin; Z96.641 Presence of right artificial hip joint; Z80.7 Family history of other malignant neoplasms of lymphoid, hematopoietic and related tissues; Z82.49 Family history of ischemic heart disease and other diseases of the circulatory system; Z83.1 Family history of other infectious and parasitic diseases
CPT/HCPCS: 96365; 96366 ×2; 96372 ×2; 96361; 99285; 36415; 80053 ×2; 85652; 83605; 85025 ×2; 85610; 85730; 86140; 81001; 87040 ×2; 87635; 73562; 93971; 73700; G0378 ×2; J3370 ×2; J1644 ×2

== ENCOUNTER → 2021-05-16 | Outpatient (CLI) | payer BC ==
--- NOTE | 2021-05-16 14:25 | MR ---
EXAMINATION TYPE: MR knee LT wo con DATE OF EXAM: 05/16/2021 COMPARISON: None HISTORY: Left knee pain TECHNIQUE: Multiplanar, multisequence imaging of the left knee is performed without IV contrast. FINDINGS: MEDIAL MENISCUS: Anterior and posterior horns are intact without tear. 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 LATERAL MENISCUS: Anterior and posterior horns are intact without tear. CRUCIATE LIGAMENTS: The anterior and posterior cruciate ligaments are intact and unremarkable. COLLATERAL LIGAMENTS: The medial collateral ligament and lateral collateral ligament complex are inta ct and unremarkable. EXTENSOR MECHANISM: Visualized quadriceps and patellar tendons are intact. EFFUSION: No significant suprapatellar joint effusion. POPLITEAL CYST: Elongated Martino's cyst measuring 4.6 cm in length by 8 mm in AP dimension. TRICOMPARTMENT SPACES: Moderate degenerative narrowing patellofemoral joint space and medial tibiofem oral joint space. CARTILAGE: Patellar cartilage thinning. Early changes of chondromalacia patella. BONE MARROW SIGNAL: No focal abnormal marrow signal is appreciated. OTHER: No additional significant abnormality is appreciated. IMPRESSION: 1. 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 2. Martino's cyst. 3. Changes of osteoarthritis.
== END | disposition home or self-care (01) ==
LOC: RADMRIMAIN 12:56
PROVIDERS: ATTEND Orthopaedic Surgery
DX: M17.12 Unilateral primary osteoarthritis, left knee (principal); M23.322 Other meniscus derangements, posterior horn of medial meniscus, left knee; M71.22 Synovial cyst of popliteal space [Baker], left knee

== ENCOUNTER → 2021-07-18 | Outpatient (CLI) | payer BC ==
[2021-07-18 15:56] LABS: African American GFR (CKD) 79.5 (60.0-200.0); Albumin 4.4 g/dL (3.8-4.9); Anion Gap 9.9 mmol/L (10.00-18.00); BUN/Creat Ratio 10.27 Ratio (12.00-20.00); Blood Urea Nitrogen 11.3 mg/dL (9.0-27.0); Calcium 8.9 mg/dL (8.7-10.3); Carbon Dioxide 25.1 mmol/L (20.0-27.5); Globulin 2.2 g/dL (1.6-3.3); Non-African American GFR(CKD) 68.6 (60.0-200.0); Potassium 4.1 mmol/L (3.5-5.5); Total Bilirubin 1.1 mg/dL (0.30-1.20); Total Protein 6.6 g/dL (6.2-8.2)
== END | disposition home or self-care (01) ==
LOC: LABWHC1 08:32
PROVIDERS: ATTEND Internal Medicine Interventional Cardiology
DX: S48.11 Complete traumatic amputation at level between shoulder and elbow (principal); X58.XXXA Exposure to other specified factors, initial encounter
CPT/HCPCS: 36415; 80053; 83735

== ENCOUNTER → 2022-02-04 | Outpatient (CLI) | payer BC ==
[2022-02-04 17:47] LABS: African American GFR (CKD) 79.5 (60.0-200.0); Albumin 4.3 g/dL (3.8-4.9); Albumin/Globulin Ratio 2.26 (1.60-3.17); Anion Gap 9.6 mmol/L (10.00-18.00); BUN/Creat Ratio 10.73 Ratio (12.00-20.00); Blood Urea Nitrogen 11.8 mg/dL (9.0-27.0); Calcium 8.8 mg/dL (8.7-10.3); Carbon Dioxide 26.4 mmol/L (20.0-27.5); Globulin 1.9 g/dL (1.6-3.3); Magnesium 1.9 mg/dL (1.5-2.4); Non-African American GFR(CKD) 68.6 (60.0-200.0); Total Bilirubin 0.9 mg/dL (0.30-1.20); Total Protein 6.2 g/dL (6.2-8.2)
== END | disposition home or self-care (01) ==
LOC: LABWHC1 12:31
PROVIDERS: ATTEND Internal Medicine Interventional Cardiology
DX: I48.11 Longstanding persistent atrial fibrillation (principal)
CPT/HCPCS: 36415; 80053; 83735

== ENCOUNTER → 2022-10-30 | Outpatient (CLI) | payer BC ==
--- NOTE | 2022-10-30 11:46 | XR ---
EXAMINATION TYPE: XR ankle complete RT DATE OF EXAM: 10/30/2022 COMPARISON: NONE HISTORY: Pain FINDINGS: Three views of the ankle demonstrate the ankle mortise to be intact and symmetric. The joint spaces are preserved. The osseous structures are intact. Diffuse soft tissue edema. There is a plantar marlin caneal spur. No destructive changes. Tiny bony density adjacent to medial malleolus appears chronic. IMPRESSION: 1. Diffuse soft tissue edema with no diagnostic evidence of destructive change to suggest osteomyelit is.
[2022-10-30 14:57] LABS: Basophils # (A) 0.03 X 10*3/uL (0.00-0.10); Basophils % (A) 0.4 %; Eosinophils # (A) 0.08 X 10*3/uL (0.04-0.35); Eosinophils % (A) 1.1 %; HCT 50.3 % (39.6-50.0); HGB 16.3 g/dL (13.0-17.0); Immature Grans, Automated 0.3 %; Lymphocytes # (A) 1.58 X 10*3/uL (0.90-5.00); Lymphocytes % (A) 22.1 %; MCH 29.7 pg (27.0-32.0); MCHC 32.4 g/dL (32.0-37.0); MCV 91.8 fL (80.0-97.0); Mean Platelet Volume 9.7 fL (9.5-12.2); Monocytes # (A) 0.57 X 10*3/uL (0.20-1.00); NRBC Per 100 WBC 0 /100 WBCS (0.0-0.0); Neutrophils # (A) 4.86 X 10*3/uL (1.80-7.70); Neutrophils % (A) 68.1 %; Platelet Count 217 X 10*3/uL (140-440); RBC 5.48 X 10*6/uL (4.40-5.60); RDW 12.7 % (11.5-14.5); WBC 7.14 X 10*3/uL (4.50-10.00)
[2022-10-30 15:50] LABS: Albumin 4.5 g/dL (3.8-4.9); Albumin/Globulin Ratio 1.96 (1.60-3.17); Anion Gap 10.8 mmol/L (10.00-18.00); BUN/Creat Ratio 12.64 Ratio (12.00-20.00); Blood Urea Nitrogen 17.7 mg/dL (9.0-27.0); C Reactive Protein 0.5 mg/dL (0.00-0.80); Calcium 9.1 mg/dL (8.7-10.3); Carbon Dioxide 25.2 mmol/L (20.0-27.5); Globulin 2.3 g/dL (1.6-3.3); Non-African American GFR(CKD) 50.9 (60.0-200.0); Potassium 4.5 mmol/L (3.5-5.5); Prealbumin 21.4 mg/dL (18.0-42.0); Total Bilirubin 0.7 mg/dL (0.30-1.20); Total Protein 6.8 g/dL (6.2-8.2)
[2022-10-30 16:13] LABS: Erythrocyte Sedimentation Rate 5 mm/Hr (0-20)
== END | disposition home or self-care (01) ==
LOC: LABWHC1 10:57
PROVIDERS: ATTEND Family Medicine
DX: I10 Essential (primary) hypertension (principal); I87.311 Chronic venous hypertension (idiopathic) with ulcer of right lower extremity; I87.2 Venous insufficiency (chronic) (peripheral); I48.0 Paroxysmal atrial fibrillation; E78.5 Hyperlipidemia, unspecified; R60.0 Localized edema
CPT/HCPCS: 36415; 80053; 84134; 85025; 85652; 86140

== ENCOUNTER → 2022-11-12 | Outpatient (CLI) | payer BC ==
--- NOTE | 2022-11-12 08:44 | US ---
LOWER EXTREMITY VENOUS INSUFFICIENCY CLINICAL HISTORY: I87.3 CHRONIC VENOUS HYPERTENSION WITH ULCER OF RT. Right ankle non healing wound SIDE PERFORMED: Bilateral 1) Color flow is present and patency is documented in the following vessels. No DVT or SVT is noted . Common Femoral Vein Deep Femoral Vein Femoral Vein Popliteal Vein Proximal Calf Veins Greater Saph Vein Upper Small Saph Vein 2) There is venous reflux noted at the following venous levels: none IMPRESSION: 1. Normal vascular flow is within the bilateral deep venous structures. No reflux is identified adriana g the exam.
--- NOTE | 2022-11-13 12:16 | US ---
EXAMINATION TYPE: US arterial LE single level DATE OF EXAM: 11/12/2022 8:15 AM CLINICAL HISTORY: I87.3 CHRONIC VENOUS HYPERTENSION WITH ULCER OF RT. Right ankle non healing wound x 4 months History of: Smoker: no Hypertension: yes Diabetic: no Hyperlipidemia: no TIA/CVA: no Previous Vascular Surgery: yes CAD: no [place]: no Vascular Ulcers: right Claudication: no Gangrene: no Doppler Waveforms: Right: Biphasic to monophasic Left: Multiphasic Pulse Volume Recording: Pressure Gradients: Right Brachial Pressure: 122 Left Brachial Pressure: 117 Ankle-Brachial Indices: Right: 1.25 Left: 1.38 Toe Brachial Indices: Right: 0.71 Left: 0.87 IMPRESSION: Normal bilateral GENESIS and TBI values.
== END | disposition home or self-care (01) ==
LOC: RADUSWWP 06:56
PROVIDERS: ATTEND Family Medicine
DX: I87.391 Chronic venous hypertension (idiopathic) with other complications of right lower extremity (principal); I87.311 Chronic venous hypertension (idiopathic) with ulcer of right lower extremity; I87.2 Venous insufficiency (chronic) (peripheral); I10 Essential (primary) hypertension; E78.5 Hyperlipidemia, unspecified; I48.0 Paroxysmal atrial fibrillation
CPT/HCPCS: 93922; 93970

== ENCOUNTER → 2023-06-04 | Outpatient (CLI) | payer BC ==
[2023-06-04 18:31] LABS: BUN/Creat Ratio 10.91 Ratio (12.00-20.00); Calcium 8.8 mg/dL (8.7-10.3); Carbon Dioxide 29.3 mmol/L (21.6-31.8); Chloride 105 mmol/L (96-109); Glucose 119 mg/dL (70-110); Magnesium 1.9 mg/dL (1.5-2.4); Potassium 4.1 mmol/L (3.5-5.5); Sodium 142 mmol/L (135-145)
== END | disposition home or self-care (01) ==
LOC: LABWHC1 09:32
PROVIDERS: ATTEND Internal Medicine Interventional Cardiology
DX: I48.11 Longstanding persistent atrial fibrillation (principal)
CPT/HCPCS: 36415; 80048; 83735